=== PATIENT | female | born 1940 | race Caucasian/White ===

== ENCOUNTER 2020-02-24 18:31 | Inpatient (IN) | payer MEDICARE, MEDICAID ==
[2020-02-24] MEDS ORDERED: Sodium Chloride 0.9% 10 ML Syringe FLUSH PRN ×3 (18:45→20:26)
--- NOTE | 2020-02-24 18:45 | EDM.PDOC ---
ED HPI GENERAL MEDICAL PROBLEM - General Chief Complaint: General Stated Complaint: TACHYCARDIA/CP Time Seen by Provider: 02/24/20 18:45 Source of Information: Reports: Patient, EMS, Old Records ([facility] chart/EMR). Denies: EMS Notes Reviewed (Not available at time of dictation) History Limitations: Reports: No Limitations - History of Present Illness INITIAL COMMENTS - FREE TEXT/NARRATIVE: The patient was brought to the emergency room via ambulance with incident response manager accompaniment for evaluation of initial 11/21 retrosternal chest "ache" associated with some dizziness and tachycardia with PSVT noted by the paramedics at time of arrival with heart rate in the 170s at that time. Note spontaneous resolution of tachycardia without medications after saline lock was placed possibly secondary to vasovagal effect. The patient apparently does not have any previous history of coronary artery disease, chest pain or arrhythmia, although no previous cardiac work-up per our medical records. The patient denies any orthostasis, orthopnea, diaphoresis, paresthesias, recent decreased exercise tolerance, or any other anginal-type symptoms. No recent history of abdominal pain, heartburn, nausea, diarrhea, melena, gross hematochezia, or any food intolerance, including fatty foods, etc.. She denies any gross hematuria, colic, or other UTI symptoms. The patient also denies any recent fever, cough, wheezing, dyspnea, etc.. Her chest pain has completely resolved after spontaneous conversion of her tachycardia as above. The patient did have a minor fall at about 1400 hrs. this afternoon with history of recurrent falls and patient compliant with her walker and cane. Onset: Today, Sudden, Unknown/Unsure Onset Date: 02/24/20 Onset Time: 17:45 Duration: Resolved Prior to Arrival Location: Reports: Chest. Denies: Head, Face, Neck, Abdomen, Back, Upper Extremity, Left, Upper Extremity, Right, Radiates to Quality: Reports: Ache Severity: Moderate Improves with: Reports: Other (As above) Worsens with: Reports: None Context: Reports: Other (As above). Denies: Sick Contact, Trauma Associated Symptoms: Reports: Chest Pain. 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: EKG, IV/IO - Related Data Allergies Allergy/AdvReac Type Severity Reaction Status Date / Time Penicillins Allergy Hives Verified 02/24/20 18:41 tramadol Allergy Nausea Verified 02/24/20 18:41 yellow dye Allergy Itching Verified 02/24/20 18:41 Home Meds: Home Meds Aspirin [Ecotrin] 325 mg PO DAILY 04/24/14 [History] Cholecalciferol (Vitamin D3) [Vitamin D] 1,000 unit PO DAILY 04/24/14 [History] Fenofibrate,Micronized [Fenofibrate] 134 mg PO BEDTIME 04/24/14 [History] Ferrous Sulfate 325 mg PO DAILY 04/24/14 [History] Magnesium Oxide [Magnesium] 500 mg PO BID 04/24/14 [History] Moexipril HCl [Moexipril] 7.5 mg PO DAILY 04/24/14 [History] Pioglitazone HCl 45 mg PO DAILY 04/24/14 [History] metFORMIN [Glucophage] 1,000 mg PO BIDM 04/24/14 [History] Cyanocobalamin (Vitamin B-12) [Cyanocobalamin Injection] 1,000 mcg IM Q30D 09/07/19 [History] SitaGLIPtin [Januvia] 100 mg PO DAILY 09/07/19 [History] Acetaminophen [Tylenol Arthritis] 1 tab PO DAILY 10/18/19 [History] Cranberry 500 mg PO DAILY 02/24/20 [History] Sulfamethoxazole/Trimethoprim [Septra DS] 1 tab PO BID 02/24/20 [History] Past Medical History HEENT History: Reports: Impaired Vision, Other (See Below). Denies: Allergic Rhinitis, Cataract, Glaucoma, Hard of Hearing, Macular Degeneration, Otitis Media, Retinal Detachment Other HEENT History: The patient does wear glasses. Corpus palatinus. Cardiovascular History: Reports: High Cholesterol, Hypertension, Other (See Below). Denies: Afib, Aneurysm, Arrhythmia, Blood Clots/VTE/DVT, CAD, Heart Failure, Heart Murmur, MD, PVD, Syncope Other Cardiovascular History: Dyslipidemia. Respiratory History: Reports: Intubation, Previous. Denies: Asthma, Bronchitis, Recurrent, COPD, Intubation, Difficult, PE, Pneumothorax, Sleep Apnea, TB Gastrointestinal History: Reports: Cholelithiasis, Chronic Diarrhea, GERD. Denies: Celiac Disease, Colon Polyp, Diverticulosis, Fecal Incontinence, Gastritis, Inflammatory Bowel Disease, Irritable Bowel Syndrome, Jaundice, PUD Genitourinary History: Reports: UTI, Recurrent, Other (See Below). Denies: Acute Renal Failure, Chronic Renal Insuffiency, Renal Calculus, Retention, Urinary, STD, Urinary Incontinence Other Genitourinary History: Benign left renal cyst. PARARESCUE CRAFTSMAN History: Reports: Dysfunctional Uterine Bleeding, , Prolapsed Uterus. Denies: Ectopic , Endometriosis : 3 Para: 3 LMP (Approximate): Other (See Below) Other PARARESCUE CRAFTSMAN History: Surgical menopause secondary to dysfunctional uterine bleeding as above. Full term without complications during pregnancies or deliveries. Musculoskeletal History: Reports: Arthritis, Back Pain, Chronic, Fracture, Neck Pain, Chronic, Osteoarthritis, Osteoporosis, Other (See Below). Denies: Gout, RA, SLE Other Musculoskeletal History: Right wrist styloid fracture on 01/01/2016. Chronic low back pain with left-sided radiculopathy and previous epidural steroid injections and pain clinic management. Neurological History: Reports: Other (See Below). Denies: Cerebral Aneurysms, Concussion, CVA, Headaches, Chronic, Head Trauma, Migraines, MS, Neuropathy, Diabetic, Neuropathy, Peripheral, Parkinson's, Seizure, TIA Other Neuro History: Recurrent falls with the patient needing a walker and cane. Psychiatric History: Reports: None. Denies: Abuse, Victim of, ADD, ADHD, Addiction, Anxiety, Depression, Psych Hospitalization(s), PTSD, Suicide Attempt, Suicidal Ideation Endocrine/Metabolic History: Reports: Diabetes, Type II, Hypomagnesemia, Obesity/BMI 30+, Osteopenia, Osteoporosis, Vitamin D Deficiency. Denies: Diabetes, Gestational, Diabetes, Type I, Diabetes Mellitus, Type 3c, Hypothyroidism, IDDM Hematologic History: Reports: Anemia, B12 Deficiency, Iron Deficiency. Denies: Blood Transfusion(s) Immunologic History: Reports: None. Denies: AIDS, HIV, SLE Oncologic (Cancer) History: Reports: None. Denies: Basal Cell Carcinoma, Breast, Cervix, Colon, Hodgkin's Lymphoma, Leukemia, Lymphoma, Malignant Melanoma, Non-Hodgkin's Lymphoma, Ovarian, Squamous Cell Carcinoma, Uterine Dermatologic History: Reports: None. Denies: Eczema, Psoriasis - Infectious Disease History Infectious Disease History: Reports: Measles, MRSA (Right arm on 02/21/2020). Denies: C-Difficile, Chicken Pox, Meningitis, Mononucleosis, Mumps, Pertussis (Whooping Cough), Rheumatic Fever, Rubella, Scarlet Fever, Shingles, TB, VRE - Past Surgical History Head Surgeries/Procedures: Reports: None HEENT Surgical History: Reports: Adenoidectomy, Oral Surgery, Tonsillectomy, Other (See Below). Denies: Cataract Surgery, Eye Surgery, Laser Surgery, LASIK, Myringotomy w Tube(s), Naso-Sinus Surgery Other HEENT Surgeries/Procedures: Multiple teeth extractions. Tonsillectomy and adenoidectomy as a child. Cardiovascular Surgical History: Reports: None. Denies: Varicose Respiratory Surgical History: Reports: None. Denies: Thoracentesis Other Respiratory Surgeries/Procedures: Laparoscopic cholecystectomy on 10/15/2011. Colonoscopy on 09/09/2008. GI Surgical History: Reports: Cholecystectomy, Colonoscopy, Other (See Below). Denies: Appendectomy, EGD, Hernia, Abdominal, Hernia, Inguinal, Hernia Repair/Other, Polypectomy Female Surgical History: Reports: Hysterectomy, Salpingo-Oophorectomy, Other (See Below). Denies: Breast Biopsy, Section, D&C, Tubal Ligation Other Female Surgeries/Procedures: Complete hysterectomy with bilateral salpingo-oophorectomy at unknown age secondary to dysfunctional uterine bleeding. Endocrine Surgical History: Reports: None. Denies: Thyroid Biopsy Neurological Surgical History: Reports: Lumbar Spine, Other (See Below) Other Neurological Surgeries/Procedures: Patient with unknown type of back surgery possibly in the . Musculoskeletal Surgical History: Reports: None. Denies: Arthroscopic Procedure, Carpal Tunnel, Ganglion Cyst, Joint Replacement (No procedures shoulder surgery anything like that), ORIF, Shoulder Surgery Oncologic Surgical History: Reports: None Dermatological Surgical History: Reports: None - Past Imaging History Past Imaging History: Reports: Carotid US (06/15/2001), Mammogram (Last mammogram on 04/07/2009), MRI (MRI of the lumbar spine on 01/16/2019.), Ultrasound (Abdominal and pelvic ultrasound on 09/18/2011.) Social & Family History - Family History HEENT: Reports: None. Denies: Glaucoma, Macular Degeneration, Retinal Detachment Cardiac: Reports: CAD, MD. Denies: Afib, Aneurysm, Arrhythmia, Blood Clots/VTE/DVT, High Cholesterol, Hypertension Other Cardiac Family History: Father from MD in his 70s. Respiratory: Reports: None. Denies: Asthma, COPD, PE, Pneumothorax, Sleep Apnea GI: Reports: None. Denies: Celiac Disease, Cholelithiasis, Colon Polyps, GERD, GI bleed, Inflammatory Bowel Disease, Irritable Bowel Syndrome, PUD : Reports: None. Denies: Renal Calculus, Renal Disease/Insufficiency OBGYN: Reports: None. Denies: Endometriosis, Recurrent Spontaneous Musculoskeletal: Reports: Arthritis, Muscular Dystrophy, RA. Denies: Gout, SLE Other Musculoskeletal Family History: Son from muscular dystrophy. Mother with rheumatoid arthritis. Neurological: Reports: None. Denies: Alzheimers Disease, Cerebral Aneurysms, CVA, Dementia, Migraines, MS, Parkinson's, Seizure, TIA Psychiatric: Reports: None. Denies: Abuse, Victim of, ADD, ADHD, Anxiety, Depression, Psych Hospitalization(s), PTSD, Suicide Attempt Endocrine/Metabolic: Reports: Diabetes, type II, IDDM. Denies: Diabetes Mellitus, Type 3c, Hypothyroidism Other Endocrine/Metabolic Family History: Sister with IDDM. Father and son with AODM. Hematologic: Reports: None. Denies: Anemia, SLE Immunologic: Reports: SLE (Your mother your mother did pass away from her breast cancer though did your mother from her breast cancer she did). Denies: AIDS Dermatologic: Reports: None. Denies: Eczema, Psoriasis Oncologic: Reports: Breast, Other (See Below). Denies: Cervix, Colon, Hodgkin's Lymphoma, Leukemia, Lymphoma, Non-Hodgkin's Lymphoma, Ovarian, Skin, Uterine Other Oncologic Family History: Mother with fatal breast cancer in her 70s. - Tobacco Use Smoking Status *Q: Former Smoker Tobacco Use Within Last Twelve Months: No Years of Tobacco use: 7 Packs/Tins Daily: 0.1 Packs/Tins Daily Comment: 2 cigarettes/day between ages 20 and 27. Used Tobacco, but Quit: Yes Smoking Cessation Information Provided To Patient: No Second Hand Smoke Exposure: No Second Hand Smoke Education Provided: No - Caffeine Use Caffeine Use: Reports: Coffee (1 cup/day), Tea (1 glass/week). Denies: Energy Drinks, Soda - Alcohol Use Alcohol Use History: No Days Per Week of Alcohol Use: 0 Number of Drinks Per Day: 0 Number of Drinks Per Day Comment: No previous DWIs, problems with alcohol abuse, etc. 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 ED EXAM, GENERAL - Physical Exam Exam: See Below Exam Limited By: No Limitations General Appearance: Alert, WD/WN, No Apparent Distress Eye Exam: Bilateral Eye: EOMI, Normal Inspection (Patient is wearing glasses. No nystagmus), PERRL Ears: Normal External Exam, Normal Canal, Hearing Grossly Normal, Normal TMs Nose: Normal Inspection, Normal Mucosa, No Blood Throat/Mouth: Normal Inspection, Normal Lips, Normal Teeth (Multiple missing teeth with partial upper dentures and no acute caries.), Normal Gums, Normal Oropharynx, Normal Voice, No Airway Compromise, Other (2 cm torus palatinum). No: Dysphagia, Perioral Cyanosis Head: Atraumatic, Normocephalic. No: Facial Swelling, Facial Tenderness, Sinus Tenderness Neck: Supple, Non-Tender, Full Range of Motion, Carotid Bruit (Mild bilateral carotid bruits). No: Lymphadenopathy (L), Lymphadenopathy (R), Thyromegaly Respiratory/Chest: No Respiratory Distress, Lungs Clear, Normal Breath Sounds, No Accessory Muscle Use, Chest Non-Tender. No: Pleural Rub, Retractions Cardiovascular: Normal Peripheral Pulses, Regular Rate, Rhythm, No Edema, No Gallop, No JVD, No Murmur, No Rub. No: Gallop/S3, Gallop/S4, Friction Rub Peripheral Pulses: 2+: Femoral (L), Femoral (R), Dorsalis Pedis (L), Dorsalis Pedis (R) GI/Abdominal: Normal Bowel Sounds, Soft, Non-Tender, No Organomegaly, No Distention, No Abnormal Bruit, No Mass, Pelvis Stable, Other (Obese). No: Guarding (Female) Exam: Deferred Rectal (Female) Exam: Deferred Back Exam: Full Range of Motion, Other (Mild kyphosis). No: CVA Tenderness (L), CVA Tenderness (R), Muscle Spasm, Paraspinal Tenderness, Vertebral Tenderness Extremities: Normal Inspection, Normal Range of Motion, Non-Tender, No Pedal Edema, Normal Capillary Refill. No: Arthur's Sign Neurological: Alert, Oriented, CN II-XII Intact, Normal Cognition, Normal Gait, Normal Reflexes (Negative Babinski's), No Motor/Sensory Deficits Psychiatric: Normal Affect, Normal Mood Skin Exam: Wound/Incision (Mild skin tear over her proximal left lateral right forearm with history of MRSA under current therapy with dry dressing). No: Diaphoretic Lymphatic: No Adenopathy EKG INTERPRETATION EKG Date: 02/24/20 Time: 18:39 Rhythm: NSR Rate (Beats/Min): 96 [place]: Normal (Neutral cardiac axis) P-Wave: Present (Mild diffuse biphasic P waves) QRS: Normal (0.08 seconds) ST-T: Normal (T wave inversion in lead V1) QT: Normal WA/PQ Interval: 0.18 seconds Comparison: Change From Previous EKG (Resolution of PSVT and complete left bundle branch block versus aberrant conduction at time of EKG by incident response manager prior to arrival. No other previous EKGs for comparison.) EKG Interpretation Comments: 1. No acute ischemic changes 2. Left atrial enlargement Course - Vital Signs Last Recorded V/S: Last Vital Signs Temp 36.9 C 02/24/20 18:32 Pulse 93 02/24/20 19:15 Resp 18 02/24/20 19:15 BP 109/47 L 02/24/20 19:15 Pulse Ox 99 02/24/20 19:00 Vital Signs - 24 hr 02/24/20 02/24/20 02/24/20 18:32 19:00 19:15 Temperature [ 36.9 C Temporal] Pulse, 100 96 93 Peripheral [ Pulse Oximetry] Respiratory 18 20 18 Rate Blood Pressure 113/43 L 102/40 L 109/47 L [Right Upper Arm] O2 Sat by Pulse 100 99 Oximetry - Orders/Labs/Meds Orders: Active Orders 24 hr Category Date Time Status Cardiac Monitoring [RC] . DIRECTED Care 02/24/20 18:46 Active EKG Documentation Completion [RC] ASDIRECTED Care 02/24/20 18:46 Active Oxygen Therapy, ED [RC] PRN Care 02/24/20 18:46 Active Peripheral IV Care [RC] . DIRECTED Care 02/24/20 18:46 Active Peripheral IV Care [RC] . DIRECTED Care 02/24/20 19:15 Active Pulse Oximetry [RC] CONTINUOUS Care 02/24/20 18:46 Active Up With Assistance [RC] PFP Care 02/24/20 18:46 Active Vital Signs [RC] PFP Care 02/24/20 18:46 Active Nothing per Oral Now Diet [DIET] Diet 02/24/20 Breakfast Active Chest 1V Frontal [CR] Stat Exams 02/24/20 18:46 Ordered Sodium Chloride 0.9% [Saline Flush] Med 02/24/20 18:45 Active 10 ml FLUSH ASDIRECTED PRN Sodium Chloride 0.9% [Saline Flush] Med 02/24/20 19:15 Active 10 ml FLUSH ASDIRECTED PRN Obtain Past Medical Record [OM.PC] Urgent Oth 02/24/20 18:46 Active Peripheral IV Insertion Adult [OM.PC] Routine Oth 02/24/20 19:15 Ordered Peripheral IV Insertion Adult [OM.PC] Stat Oth 02/24/20 18:46 Ordered Resuscitation Status Stat Resus Stat 02/24/20 18:45 Ordered EKG 12 Lead [EK] Stat Ther 02/24/20 18:46 Ordered Medication Orders Sodium Chloride (Saline Flush) 10 ml FLUSH ASDIRECTED PRN PRN Reason: Keep Vein Open Sodium Chloride (Saline Flush) 10 ml FLUSH ASDIRECTED PRN PRN Reason: Keep Vein Open Labs: Laboratory Tests 02/24/20 02/24/20 02/24/20 Range/Units 19:30 19:30 19:30 WBC 7.4 (4.0-10.2) K/uL RBC 3.48 L (3.77-5.09) M/uL Hgb 10.1 L (11.7-15.5) g/dL Hct 32.0 L (34.0-46.0) % MCV 92.0 (84.0-98.0) fL MCH 29.0 (28.2-33.3) pg MCHC 31.6 L (31.7-36.0) g/dL RDW 15.7 H (11.2-14.1) % Plt Count 232 (150-350) K/uL Neut % (Auto) 80.0 (45.0-80.0) % Lymph % (Auto) 9.3 L (10.0-50.0) % Kane % (Auto) 9.4 (2.0-14.0) % Eos % (Auto) 0.9 (0.0-5.0) % Baso % (Auto) 0.4 (0.0-2.0) % Neut # (Auto) 5.94 (1.40-7.00) K/uL Lymph # (Auto) 0.69 (0.50-3.50) K/uL Kane # (Auto) 0.70 (0.00-1.00) K/uL Eos # (Auto) 0.07 (0.00-0.50) K/uL Baso # (Auto) 0.03 (0.00-0.20) K/uL PT 10.4 (9.5-12.0) SEC INR 1.0 APTT 25.9 (24.5-32.8) SEC D-Dimer, Quantitative 604 H (0-400) ng/mL Sodium (136-145) mmol/L Potassium (3.5-5.1) mmol/L Chloride (98-107) mmol/L Carbon Dioxide (21.0-32.0) mmol/L BUN (7-18) mg/dL Creatinine (0.51-1.17) mg/dL Est Cr Clr Drug Dosing Estimated GFR (MDRD) mL/min Glucose (74-106) mg/dL Lactic Acid (0.4-2.0) mmol/L Uric Acid (2.6-7.2) mg/dL Calcium (8.5-10.1) mg/dL Magnesium (1.8-2.4) mg/dL Total Bilirubin (0.2-1.0) mg/dL AST (15-37) U/L ALT (12-78) U/L Alkaline Phosphatase (46-116) IU/L Creatine Kinase (26-308) U/L Creatine Kinase Index (0.0-2.5) % CK-MB (CK-2) (0.00-3.60) ng/mL Troponin I (0.000-0.056) ng/mL NT-Pro-B Natriuret Pep (0-125) pg/mL Total Protein (6.4-8.2) g/dL Albumin (3.4-5.0) g/dL TSH, Ultra Sensitive (0.358-3.740) mIU/mL 02/24/20 02/24/20 Range/Units 19:30 19:30 WBC (4.0-10.2) K/uL RBC (3.77-5.09) M/uL Hgb (11.7-15.5) g/dL Hct (34.0-46.0) % MCV (84.0-98.0) fL MCH (28.2-33.3) pg MCHC (31.7-36.0) g/dL RDW (11.2-14.1) % Plt Count (150-350) K/uL Neut % (Auto) (45.0-80.0) % Lymph % (Auto) (10.0-50.0) % Kane % (Auto) (2.0-14.0) % Eos % (Auto) (0.0-5.0) % Baso % (Auto) (0.0-2.0) % Neut # (Auto) (1.40-7.00) K/uL Lymph # (Auto) (0.50-3.50) K/uL Kane # (Auto) (0.00-1.00) K/uL Eos # (Auto) (0.00-0.50) K/uL Baso # (Auto) (0.00-0.20) K/uL PT (9.5-12.0) SEC INR APTT (24.5-32.8) SEC D-Dimer, Quantitative (0-400) ng/mL Sodium 135 L (136-145) mmol/L Potassium 4.0 (3.5-5.1) mmol/L Chloride 100 (98-107) mmol/L Carbon Dioxide 23.4 (21.0-32.0) mmol/L BUN 26 H (7-18) mg/dL Creatinine 1.50 H (0.51-1.17) mg/dL Est Cr Clr Drug Dosing TNP Estimated GFR (MDRD) 34 mL/min Glucose 165 H (74-106) mg/dL Lactic Acid 1.4 (0.4-2.0) mmol/L Uric Acid 4.8 (2.6-7.2) mg/dL Calcium 9.1 (8.5-10.1) mg/dL Magnesium 1.9 (1.8-2.4) mg/dL Total Bilirubin 0.3 (0.2-1.0) mg/dL AST 27 (15-37) U/L ALT 21 (12-78) U/L Alkaline Phosphatase 66 (46-116) IU/L Creatine Kinase 80 (26-308) U/L Creatine Kinase Index 1.9 (0.0-2.5) % CK-MB (CK-2) 1.50 (0.00-3.60) ng/mL Troponin I 0.032 (0.000-0.056) ng/mL NT-Pro-B Natriuret Pep 1094 H (0-125) pg/mL Total Protein 7.0 (6.4-8.2) g/dL Albumin 3.4 (3.4-5.0) g/dL TSH, Ultra Sensitive 1.347 (0.358-3.740) mIU/mL Meds: Medications Generic Name Dose Route Start Last Admin Trade Name Freq PRN Reason Stop Dose Admin Sodium Chloride 10 ml 02/24/20 18:45 Saline Flush FLUSH ASDIRECTED PRN Keep Vein Open Sodium Chloride 10 ml 02/24/20 19:15 Saline Flush FLUSH ASDIRECTED PRN Keep Vein Open Discontinued Medications Generic Name Dose Route Start Last Admin Trade Name Freq PRN Reason Stop Dose Admin Aspirin 324 mg 02/24/20 18:45 02/24/20 19:02 Aspirin CHEW 02/24/20 18:46 324 mg ONETIME ONE Administration Famotidine 40 mg 02/24/20 18:45 02/24/20 19:06 Pepcid IVPUSH 02/24/20 18:46 40 mg ONETIME ONE Administration Ticagrelor 180 mg 02/24/20 18:45 02/24/20 19:03 Brilinta PO 02/24/20 18:46 180 mg ONETIME ONE Administration - Radiology Interpretation Free Text/Narrative:: 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 Chest x-ray, portable, shows mild cardiomegaly with possible borderline mild centralized CHF but no pulmonary infiltrates, pneumothorax, etc. Departure - Departure Time of Disposition: 20:15 Disposition: Admitted As Inpatient 68 Condition: Good Clinical Impression: PSVT (paroxysmal supraventricular tachycardia), Dyslipidemia, Hypertension, Osteoarthritis, Peptic reflux disease, Hypomagnesemia, Diabetes mellitus, Chest pain, Anemia, Renal insufficiency, CHF (congestive heart failure), D-dimer, elevated - Discharge Information *PRESCRIPTION DRUG MONITORING PROGRAM REVIEWED*: Not Applicable *COPY OF PRESCRIPTION DRUG MONITORING REPORT IN PATIENT MAURO: Not Applicable Referrals: Mona Sarmiento PA [Primary Care Provider] - Forms: ED Department Discharge Care Plan Goals: See plan Sepsis Event Note (ED) - Evaluation Sepsis Screening Result: No Definite Risk - Focused Exam Vital Signs: Vital Signs Temp Pulse Resp BP Pulse Ox 02/24/20 19:15 93 18 109/47 L 02/24/20 19:00 96 20 102/40 L 99 02/24/20 18:32 36.9 C 100 18 113/43 L 100 - Problem List & Annotations (1) Chest pain SNOMED Code(s): 38009185 Code(s): R07.9 - CHEST PAIN, UNSPECIFIED Status: Acute Priority: High Current Visit: Yes Onset Date: 02/24/20 Annotation/Comment:: Likely secondary to her PSVT as above with complete resolution of chest pain by time of arrival to our facility. Chest pain protocol was initiated, however. Initiate standard rule out MD orders. Secondary to multiple cardiac risk factors further cardiac work-up may be beneficial, including a dobutamine Cardiolite stress test. Cardiology consultation depending on her clinical course. Qualifiers: Chest pain type: precordial pain Qualified Code(s): R07.2 - Precordial pain (2) PSVT (paroxysmal supraventricular tachycardia) SNOMED Code(s): 33467479 Code(s): I47.1 - SUPRAVENTRICULAR TACHYCARDIA Status: Acute Priority: High Current Visit: Yes Onset Date: 02/24/20 Annotation/Comment:: Note somewhat low baseline blood pressure, however initiate low-dose Cardizem CD therapy with caution. Note no recent significant caffeine intake, OTC cold preparations, etc.. Spontaneous resolution of her tachycardia secondary to vasovagal reaction from IV placement as above. (3) CHF (congestive heart failure) SNOMED Code(s): 93497422 Code(s): I50.9 - HEART FAILURE, UNSPECIFIED Status: Acute Priority: High Current Visit: Yes Onset Date: 02/24/20 Annotation/Comment:: Moderate BNP elevation, however no clinical evidence of significant CHF by clinical exam or today's chest x-ray. Secondary to baseline low systolic blood pressure IV Lasix will not be initiated at this time. Possible mild CHF from her brief tachycardia as above with BNP also affected by her renal insufficiency. Consider echocardiogram on an outpatient basis in addition to cardiac work-up as above. Note mild secondary hyponatremia. Qualifiers: Heart failure type: unspecified Heart failure chronicity: acute Qualified Code(s): I50.9 - Heart failure, unspecified (4) D-dimer, elevated SNOMED Code(s): 301721901 Code(s): R79.89 - OTHER SPECIFIED ABNORMAL FINDINGS OF BLOOD CHEMISTRY Status: Acute Priority: High Current Visit: Yes Onset Date: 02/24/20 Annotation/Comment:: No clinical evidence of DVT or PE. Venous Doppler studies to be conducted on 02/25. Consider CTA of the chest depending on her clinical course. (5) Dyslipidemia SNOMED Code(s): 510462017 Code(s): E78.5 - HYPERLIPIDEMIA, UNSPECIFIED Status: Chronic Priority: Medium Current Visit: Yes Annotation/Comment:: Currently under therapy. Lipid panel in the a.m. (6) Hypertension SNOMED Code(s): 51545771 Code(s): I10 - ESSENTIAL (PRIMARY) HYPERTENSION Status: Chronic Priority: Medium Current Visit: Yes Annotation/Comment:: Under good control, however somewhat low blood pressures initially in the emergency room. Continue to observe closely secondary to her newly initiated Cardizem CD. Note history of recurrent falls. Qualifiers: Hypertension type: essential hypertension Qualified Code(s): I10 - Essential (primary) hypertension (7) Osteoarthritis SNOMED Code(s): 506452138 Code(s): M19.90 - UNSPECIFIED OSTEOARTHRITIS, UNSPECIFIED SITE Status: Chronic Priority: Medium Current Visit: Yes Annotation/Comment:: Otherwise stable by history with no recent injuries from her fall earlier today. Qualifiers: Osteoarthritis location: multiple joints Osteoarthritis type: primary Qualified Code(s): M89.49 - Other hypertrophic osteoarthropathy, multiple sites (8) Peptic reflux disease SNOMED Code(s): 873505302 Code(s): K21.9 - GASTRO-ESOPHAGEAL REFLUX DISEASE WITHOUT ESOPHAGITIS Status: Chronic Priority: Medium Current Visit: Yes Annotation/Comment:: No recent abdominal complaints. High-dose IV Pepcid given as GI prophylaxis in the emergency room. (9) Diabetes mellitus SNOMED Code(s): 82356494 Code(s): E11.9 - TYPE 2 DIABETES MELLITUS WITHOUT COMPLICATIONS Status: Chronic Priority: Medium Current Visit: Yes Annotation/Comment:: Currently under therapy. Glycosylated hemoglobin in the a.m. Qualifiers: Diabetes mellitus type: type 2 Diabetes mellitus assisted insulin use: without termite control technician use Diabetes mellitus complication status: with kidney complications Diabetes mellitus complication detail: with chronic kidney disease Chronic kidney disease stage: stage 2 (mild) Qualified Code(s): E11.22 - Type 2 diabetes mellitus with diabetic chronic kidney disease; N18.2 - Chronic kidney disease, stage 2 (mild) (10) Hypomagnesemia SNOMED Code(s): 421478344 Code(s): E83.42 - HYPOMAGNESEMIA Status: Chronic Priority: Medium Current Visit: Yes Annotation/Comment:: Currently under therapy with normal magnesium level on 02/23. (11) Anemia SNOMED Code(s): 918163789 Code(s): D64.9 - ANEMIA, UNSPECIFIED Status: Acute Current Visit: Yes Annotation/Comment:: History of iron deficiency and vitamin B12 deficiency. TIBC panel in a.m. 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 Observe for now. No NATE inhibitor's, etc. for now secondary to her baseline low systolic blood pressure. - Problem List Review Problem List Initiated/Reviewed/Updated: Yes - My Orders Last 24 Hours: My Active Orders 02/24/20 Breakfast Nothing per Oral Now Diet [DIET] 02/24/20 18:45 Sodium Chloride 0.9% [Saline Flush] 10 ml FLUSH ASDIRECTED PRN Resuscitation Status Stat 02/24/20 18:46 Cardiac Monitoring [RC] . DIRECTED EKG Documentation Completion [RC] ASDIRECTED Oxygen Therapy, ED [RC] PRN Peripheral IV Care [RC] . DIRECTED Pulse Oximetry [RC] CONTINUOUS Up With Assistance [RC] PFP Vital Signs [RC] PFP Chest 1V Frontal [CR] Stat Obtain Past Medical Record [OM.PC] Urgent Peripheral IV Insertion Adult [OM.PC] Stat EKG 12 Lead [EK] Stat 02/24/20 19:15 Peripheral IV Care [RC] . DIRECTED Sodium Chloride 0.9% [Saline Flush] 10 ml FLUSH ASDIRECTED PRN Peripheral IV Insertion Adult [OM.PC] Routine - Assessment/Plan Admission H&P: Please use this note as an admission H&P Last 24 Hours: My Active Orders 02/24/20 Breakfast Nothing per Oral Now Diet [DIET] 02/24/20 18:45 Sodium Chloride 0.9% [Saline Flush] 10 ml FLUSH ASDIRECTED PRN Resuscitation Status Stat 02/24/20 18:46 Cardiac Monitoring [RC] . DIRECTED EKG Documentation Completion [RC] ASDIRECTED Oxygen Therapy, ED [RC] PRN Peripheral IV Care [RC] . DIRECTED Pulse Oximetry [RC] CONTINUOUS Up With Assistance [RC] PFP Vital Signs [RC] PFP Chest 1V Frontal [CR] Stat Obtain Past Medical Record [OM.PC] Urgent Peripheral IV Insertion Adult [OM.PC] Stat EKG 12 Lead [EK] Stat 02/24/20 19:15 Peripheral IV Care [RC] . DIRECTED Sodium Chloride 0.9% [Saline Flush] 10 ml FLUSH ASDIRECTED PRN Peripheral IV Insertion Adult [OM.PC] Routine Assessment:: As above. Plan: As above. Extensive precautions were given to the patient, who is in agreement with the treatment plan. The patient's condition is stable enough for observation status and general supervision.
[2020-02-24] MEDS: Aspirin 81 MG Tab.Chew CHEW ONE (19:02)
[2020-02-24] MEDS: Ticagrelor 90 MG Tab PO ONE (19:03)
[2020-02-24] MEDS: Famotidine 20 MG/2 ML SDV IVPUSH ONE (19:06)
[2020-02-24 20:01] LABS: CHLORIDE,CL 100 mmol/L (98-107); PTT,PARTIAL THROMBOPLSTIN TIME 25.9 SEC (24.5-32.8); SODIUM,NA 135 mmol/L (136-145)
[2020-02-24] MEDS ORDERED: Acetaminophen 325 MG Tab PO PRN (20:26)
[2020-02-24] MEDS ORDERED: Temazepam 15 MG Cap PO PRN (20:26)
[2020-02-24] MEDS: Diltiazem 120 MG Cap.CD PO SCH (21:20)
[2020-02-24] MEDS: Enoxaparin 40 MG/0.4 ML Syringe SUBCUT SCH (21:24)
[2020-02-24] MEDS: Sulfamethoxazole/Trimethoprim 800-160 MG Tab PO ONE (23:10)
[2020-02-24] MEDS: Fenofibrate,Micronized 134 MG Cap PO ONE (23:10)
[2020-02-25] MEDS: Lactated Ringers 250 ML IV SCH (03:28)
[2020-02-25 07:46] LABS: HEMOGLOBIN A1C 6.2 % (4.3-5.7)
[2020-02-25] MEDS ORDERED: Lisinopril 10 MG Tab PO SCH (08:00)
[2020-02-25] MEDS: metFORMIN 500 MG Tab PO SCH (08:08)
[2020-02-25] MEDS: Acetaminophen 650 MG Tab.ER PO SCH (08:08)
[2020-02-25] MEDS: Cholecalciferol (Vitamin D3) 25 MCG Tab PO SCH (08:08)
[2020-02-25] MEDS: Ferrous Sulfate 325 MG Tab PO SCH (08:08)
[2020-02-25] MEDS: Magnesium Oxide 400 MG Tab PO SCH (08:08)
[2020-02-25] MEDS: Cranberry 500 MG Cap PO SCH (08:08)
[2020-02-25] MEDS: Sulfamethoxazole/Trimethoprim 800-160 MG Tab PO SCH (08:10)
[2020-02-25] MEDS: Aspirin 325 MG Tab.EC PO SCH (08:13)
--- NOTE | 2020-02-25 10:18 | PCM.DCSUM1 ---
Discharge Summary - Hospital Course HPI Initial Comments: See emergency room note/admission H&P Brief History: See emergency room note/admission H&P Diagnosis: Stroke: No Modified Dante Scale: No Symptoms at All Modified Dante Scale Score: 0 - Discharge Data Discharge Date: 02/25/20 Discharge Disposition: DC/Tfer to Acute Hospital 02 Condition: Fair - Referral to Home Health Primary Care Physician: DANIELE Rosas - Discharge Diagnosis/Problem(s) (1) Coronary artery disease SNOMED Code(s): 63779018 ICD Code: I25.10 - ATHSCL HEART DISEASE OF [place] CORONARY ARTERY W/O ANG PCTRS Status: Acute Priority: High Current Visit: Yes Onset Date: 02/25/20 Problem Details: New EKG changes this morning, including evidence of probable anterior wall cardiac ischemia as below. In addition, new troponin elevation of 0.083 this morning with her current CHF being a contributing factor. Otherwise no chest pain or anginal type symptoms since admission despite second episode of PSVT as below. Telephone consultation at 10:05 AM this morning with Dr. De Paz, hospitalist at [facility], who does accept the patient for further treatment, evaluation, and cardiology consultation. He is aware of the patient's CHF and d-dimer elevation and is also comfortable not giving an IV bolus of sodium heparin prior to patient transfer. Permission was obtained for initiating patient's diet prior to transfer. Otherwise patient's clinical exam and vital signs were stable at time of transfer with ambulance transfer with demo coordinator accompaniment. Qualifiers: Coronary Disease-Associated Artery/Lesion type: [place] artery [place] vs. transplanted heart: [place] heart Associated angina: without angina Qualified Code(s): I25.10 - Atherosclerotic heart disease of [place] coronary artery without angina pectoris (2) Chest pain SNOMED Code(s): 49971839 ICD Code: R07.9 - CHEST PAIN, UNSPECIFIED Status: Acute Priority: High Current Visit: Yes Onset Date: 02/24/20 Problem Details: Likely secondary to her PSVT as below with complete resolution of chest pain by time of arrival to our facility. Chest pain protocol was initiated, however, with no evidence of anterior wall cardiac ischemia as above. Note no recurrence of her chest pain or other anginal type symptoms at time of recurrence of her PSVT at 2:17 AM this morning as below. Qualifiers: Chest pain type: precordial pain Qualified Code(s): R07.2 - Precordial pain (3) PSVT (paroxysmal supraventricular tachycardia) SNOMED Code(s): 15558183 ICD Code: I47.1 - SUPRAVENTRICULAR TACHYCARDIA Status: Acute Priority: High Current Visit: Yes Onset Date: 02/24/20 Problem Details: Initial PSVT with aberrant conduction with heart rate in the 170s noted by paramedics as per emergency room note. Secondary to somewhat low baseline blood pressure on admission, however initiated only low-dose Cardizem CD therapy with caution at that time. Recurrence of PSVT with heart rates in the 140s at 2:17 AM with spontaneous resolution after vasovagal maneuvers were performed, however note significant secondary bradycardia with initial heart rate of 27 with subsequent improvement to the 40s, however some hypotension with blood pressure of 80/26 at that time. Blood pressures did improve with a 250 mL IV bolus of lactated Ringer's with no chest pain or anginal type symptoms during the second episode of PSVT. Secondary to history of recurrent falls, including in the early afternoon prior to admission, suspicion of possible developing sick sinus syndrome with further cardiac work-up and/or pacemaker depending on her clinical course. Note no recent significant caffeine intake, OTC cold preparations, etc.. Spontaneous resolution of her tachycardia secondary to vasovagal reaction from IV placement by the paramedics during initial episode as per emergency room note. (4) CHF (congestive heart failure) SNOMED Code(s): 08378014 ICD Code: I50.9 - HEART FAILURE, UNSPECIFIED Status: Acute Priority: High Current Visit: Yes Onset Date: 02/24/20 Problem Details: Moderate BNP elevation, however no clinical evidence of significant CHF by clinical exam or chest x-ray on 02/24/2020. Secondary to baseline low systolic blood pressure IV Lasix was not be initiated at that time. Possible mild CHF from her brief tachycardia as above with BNP also affected by her renal insufficiency. Consider echocardiogram by accepting providers in addition to cardiac work-up as above. Note mild secondary hyponatremia on admission has resolved on 02/24. Qualifiers: Heart failure type: unspecified Heart failure chronicity: acute Qualified Code(s): I50.9 - Heart failure, unspecified (5) D-dimer, elevated SNOMED Code(s): 382572717 ICD Code: R79.89 - OTHER SPECIFIED ABNORMAL FINDINGS OF BLOOD CHEMISTRY Status: Acute Priority: High Current Visit: Yes Onset Date: 02/24/20 Problem Details: No clinical evidence of DVT or PE. Venous Doppler studies should be conducted by accepting providers and was initially planned to be conducted in this facility on 02/25 secondary to lack of availability of ultrasound during the weekend. Consider CTA of the chest depending on her clinical course. Subcu Lovenox was administered on admission, however not at the VTE dose. (6) Dyslipidemia SNOMED Code(s): 460989751 ICD Code: E78.5 - HYPERLIPIDEMIA, UNSPECIFIED Status: Chronic Priority: Medium Current Visit: Yes Problem Details: Currently under therapy. Lipid panel in the a.m. of 02/25/2020 did indicate an HDL of 27. (7) Hypertension SNOMED Code(s): 42249743 ICD Code: I10 - ESSENTIAL (PRIMARY) HYPERTENSION Status: Chronic Priority: Medium Current Visit: Yes Problem Details: Under good control, however somewhat low blood pressures initially in the emergency room with hypotensive episode with second recurrence of PSVT during this hospitalization as above. Continue to observe closely secondary to her newly initiated Cardizem CD. Note history of recurrent falls. Qualifiers: Hypertension type: essential hypertension Qualified Code(s): I10 - Essential (primary) hypertension (8) Osteoarthritis SNOMED Code(s): 915798995 ICD Code: M19.90 - UNSPECIFIED OSTEOARTHRITIS, UNSPECIFIED SITE Status: Chronic Priority: Medium Current Visit: Yes Problem Details: Otherwise stable by history with no recent injuries from her fall earlier prior to admission. Qualifiers: Osteoarthritis location: multiple joints Osteoarthritis type: primary Qualified Code(s): M89.49 - Other hypertrophic osteoarthropathy, multiple sites (9) Peptic reflux disease SNOMED Code(s): 681650757 ICD Code: K21.9 - GASTRO-ESOPHAGEAL REFLUX DISEASE WITHOUT ESOPHAGITIS Status: Chronic Priority: Medium Current Visit: Yes Problem Details: No recent abdominal complaints. High-dose IV Pepcid given as GI prophylaxis in the emergency room. (10) Diabetes mellitus SNOMED Code(s): 37943611 ICD Code: E11.9 - TYPE 2 DIABETES MELLITUS WITHOUT COMPLICATIONS Status: Chronic Priority: Medium Current Visit: Yes Problem Details: Currently under therapy. Glycosylated hemoglobin of 6.2% in the a.m. of 02/24 showing overall good control. Qualifiers: Diabetes mellitus type: type 2 Diabetes mellitus superintendent terminal insulin use: without superintendent terminal use Diabetes mellitus complication status: with kidney complications Diabetes mellitus complication detail: with chronic kidney disease Chronic kidney disease stage: stage 2 (mild) Qualified Code(s): E11.22 - Type 2 diabetes mellitus with diabetic chronic kidney disease; N18.2 - Chronic kidney disease, stage 2 (mild) (11) Hypomagnesemia SNOMED Code(s): 244974504 ICD Code: E83.42 - HYPOMAGNESEMIA Status: Chronic Priority: Medium Current Visit: Yes Problem Details: Currently under therapy with normal magnesium level on 02/23. (12) Anemia SNOMED Code(s): 247150619 ICD Code: D64.9 - ANEMIA, UNSPECIFIED Status: Acute Current Visit: Yes Problem Details: History of iron deficiency and vitamin B12 deficiency. TIBC panel in a.m. of 02/24 did show persistent iron deficiency with somewhat increased anemia and hemoglobin of 9.2 prior to transfer. No evidence of acute GI bleed, etc. despite low-dose subcu Lovenox therapy as above. Continue to observe closely by accepting providers with GI work-up depending on her clinical course. Patient has refused colonoscopy in the recent past, however. Qualifiers: Anemia type: iron deficiency Iron deficiency anemia type: unspecified iron deficiency Qualified Code(s): D50.9 - Iron deficiency anemia, unspecified (13) Renal insufficiency SNOMED Code(s): 193649486, 918813928 ICD Code: N28.9 - DISORDER OF KIDNEY AND URETER, UNSPECIFIED Status: Acute Priority: High Current Visit: Yes Onset Date: 02/24/20 Problem Details: Newly diagnosed probable diabetic nephropathy with stable creatinine at time of transfer. Consider urine for microalbumin, etc. depending on her clinical course.. Observe for now. Note that previous NATE inhibitor, moexipril was held in the a.m. of 02/23 secondary to her baseline low systolic blood pressure on admission, new Cardizem CD therapy, and hypotensive episode as above. (14) Hypoalbuminemia SNOMED Code(s): 525096662 ICD Code: E88.09 - OTH DISORDERS OF PLASMA-PROTEIN METABOLISM, NEC Status: Acute Priority: Medium Current Visit: Yes Onset Date: 02/25/20 Problem Details: Normal albumin level on admission. Observe for now. Consider high- protein Glucerna supplements as snacks depending on her clinical course. (15) MRSA cellulitis SNOMED Code(s): 654280364 ICD Code: L03.90 - CELLULITIS, UNSPECIFIED; B95.62 - METHICILLIN RESIS STAPH INFCT CAUSING DISEASES CLASSD ELSWHR Status: Acute Priority: Medium Current Visit: Yes Onset Date: 02/21/20 Problem Details: Recently diagnosed right forearm MRSA cellulitis from skin tear with Bactrim DS therapy initiated prior to admission. (16) UTI (urinary tract infection) SNOMED Code(s): 73815487 ICD Code: N39.0 - URINARY TRACT INFECTION, SITE NOT SPECIFIED Status: Acute Priority: Medium Current Visit: Yes Onset Date: 02/25/20 Problem Details: Foul-smelling urine with some dysuria on 02/24 with Bactrim DS therapy already initiated prior to admission on 02/20 as above. No further medications at this time awaiting culture and sensitivity results, which were set up today. Qualifiers: Urinary tract infection type: acute cystitis - Patient Summary/Data Operative Procedure(s) Performed: None Complications: None Consults: Hospitalist as above Labs Pending at D/C: 1. Final chest x-ray report from 02/24/2020 2. Urine culture and sensitivity results from 02/25/2020 Recommended Follow-up Testing/Procedures: As above Planned Operative Procedure(s) after DC: As above Hospital Course: Patient was admitted to inpatient/acute care on telemetry with initiation of standard rule out IN orders as above. Note evidence of new anterior wall cardiac ischemia with mild troponin I elevation but no chest pain or anginal type symptoms throughout this hospitalization. Recurrent episodes of PSVT with additional secondary severe bradycardia after vasovagal maneuver with history of recent recurrent falls and suspicions of possible sick sinus syndrome as above. Otherwise no complications during this hospitalization despite hypotensive episode, etc. as above - Patient Instructions Diet: Fluid Restriction Diet, Other: Heart healthy, 1800-calorie ADA, diverticulosis Fluid Restriction: 2000 mL Activity: No Strenuous Activities Driving: May Drive Today Showering/Bathing: No Showering Wound/Incision Care: Keep Operative Site/Wound Site Clean and Dry, Change Dressing Daily Notify Provider of: Fever, Increased Pain, Swelling and Redness, Drainage, Nausea and/or Vomiting - Discharge Plan *PRESCRIPTION DRUG MONITORING PROGRAM REVIEWED*: Not Applicable *COPY OF PRESCRIPTION DRUG MONITORING REPORT IN PATIENT MAURO: Not Applicable Home Medications: Home Meds Aspirin [Ecotrin] 325 mg PO DAILY 04/24/14 [History] Cholecalciferol (Vitamin D3) [Vitamin D] 1,000 unit PO DAILY 04/24/14 [History] Fenofibrate,Micronized [Fenofibrate] 134 mg PO BEDTIME 04/24/14 [History] Ferrous Sulfate 325 mg PO DAILY 04/24/14 [History] Magnesium Oxide [Magnesium] 500 mg PO BID 04/24/14 [History] Moexipril HCl [Moexipril] 7.5 mg PO DAILY 04/24/14 [History] Pioglitazone HCl 45 mg PO DAILY 04/24/14 [History] metFORMIN [Glucophage] 1,000 mg PO BIDM 04/24/14 [History] Cyanocobalamin (Vitamin B-12) [Cyanocobalamin Injection] 1,000 mcg IM Q30D 09/07/19 [History] SitaGLIPtin [Januvia] 100 mg PO DAILY 09/07/19 [History] Acetaminophen [Tylenol Arthritis] 1 tab PO DAILY 10/18/19 [History] Cranberry 500 mg PO DAILY 02/24/20 [History] Sulfamethoxazole/Trimethoprim [Septra DS] 1 tab PO BID 02/24/20 [History] Oxygen Therapy Mode: Room Air Forms: ED Department Discharge, Interfacility Transfer EMTALA Referrals: Mona Sarmiento PA [Primary Care Provider] - - Discharge Summary/Plan Comment DC Time >30 min.: Yes (Coordination of care ) Discharge Summary/Plan Comment: As above. Extensive precautions were given to the patient, who is in agreement with the treatment plan. Hospital transfer via ambulance with demo coordinator accompaniment as above. - General Info Date of Service: 02/25/20 Admission Dx/Problem (Free Text: 1. Chest pain 2. PSVT with aberrant conduction 3. CHF 4. D-dimer elevation Functional Status: Reports: Pain Controlled, Tolerating Diet (Starting this morning), Ambulating, Urinating. Denies: New Symptoms, Incentive Spirometry Numeric/FACES Score: 0 - Review of Systems General: Reports: No Symptoms. Denies: Fever, Weakness, Fatigue, Malaise, Chills, Night Sweats, Appetite (Good) HEENT: Reports: Glasses. Denies: Dysphasia, Ear Pain, Eye Pain, Headaches, Post Nasal Drip, Sinus Congestion, Sore Throat, Rhinitis, Visual Changes Pulmonary: Reports: No Symptoms. Denies: Shortness of Breath, Pleuritic Chest Pain, Cough, Sputum, Wheezing Cardiovascular: Reports: Palpitations (Recurrent brief episode of PSVT as above). Denies: Chest Pain, Dyspnea on Exertion, Orthopnea, PND, Edema, Lightheadedness Gastrointestinal: Reports: No Symptoms. Denies: Abdominal Pain, Constipation, Decreased Appetite, Diarrhea, Flatus, Hematochezia, Melena, Nausea, Vomiting Genitourinary: Reports: Dysuria, Frequency, Burning, Urgency. Denies: Incontinence, Hematuria, Retention, Flank Pain Musculoskeletal: Reports: No Symptoms. Denies: Neck Pain, Shoulder Pain, Arm Pain, Back Pain Skin: Reports: Other (Healing skin tear and cellulitis in the right forearm). Denies: Diaphoresis Neurological: Reports: Difficulty Walking (Stable with current walker and cane use requirement). Denies: Confusion, Dizziness, Numbness, Paresthesia, Syncope, Tingling, Weakness Psychiatric: Reports: No Symptoms. Denies: Confusion, Depression, Anxiety, Agitation, Cravings, Hallucinations - Patient Data Vitals - Most Recent: Last Vital Signs Temp 36.9 C 02/25/20 07:47 Pulse 63 02/25/20 07:47 Resp 18 02/25/20 07:47 BP 123/33 L 02/25/20 07:47 Pulse Ox 100 02/25/20 07:47 Orthostatic Blood Pressure [ 101/37 Standing] Orthostatic Blood Pressure [ 122/39 Sitting] Vital Signs - 24 hr 02/24/20 02/24/20 02/24/20 18:32 19:00 19:15 Temperature [ 36.9 C Temporal] Pulse, Peripheral Pulse, 100 96 93 Peripheral [ Pulse Oximetry] Respiratory 18 20 18 Rate Blood Pressure Blood Pressure [Left Upper Arm ] Blood Pressure 113/43 L 102/40 L 109/47 L [Right Upper Arm] O2 Sat by Pulse 100 99 Oximetry 02/24/20 02/24/20 02/24/20 20:26 21:20 22:00 Temperature [ 36.9 C 36.8 C Temporal] Pulse, 76 Peripheral Pulse, 85 74 Peripheral [ Pulse Oximetry] Respiratory 20 14 Rate Blood Pressure 118/36 L Blood Pressure 121/50 L 122/35 L [Left Upper Arm ] Blood Pressure [Right Upper Arm] O2 Sat by Pulse 98 100 Oximetry 02/25/20 02/25/20 02/25/20 00:00 01:59 02:20 Temperature [ Temporal] Pulse, Peripheral Pulse, 73 70 142 H Peripheral [ Pulse Oximetry] Respiratory Rate Blood Pressure Blood Pressure 145/104 H 80/26 L [Left Upper Arm ] Blood Pressure 102/28 L [Right Upper Arm] O2 Sat by Pulse Oximetry 02/25/20 02/25/20 02/25/20 04:00 06:00 07:47 Temperature [ 36.9 C 37.0 C 36.9 C Temporal] Pulse, Peripheral Pulse, 63 61 63 Peripheral [ Pulse Oximetry] Respiratory 12 18 Rate Blood Pressure Blood Pressure [Left Upper Arm ] Blood Pressure 108/36 L 117/43 L 123/33 L [Right Upper Arm] O2 Sat by Pulse 100 100 Oximetry 02/25/20 10:00 Temperature [ 36.8 C Temporal] Pulse, Peripheral Pulse, 62 Peripheral [ Pulse Oximetry] Respiratory 18 Rate Blood Pressure Blood Pressure [Left Upper Arm ] Blood Pressure 126/43 L [Right Upper Arm] O2 Sat by Pulse 100 Oximetry Orthostatic Blood Pressure [ 101/37 Standing] Orthostatic Blood Pressure [ 122/39 Sitting] Weight - Most Recent: 77.383 kg I&O - Last 24 hours: Intake & Output 02/24/20 02/25/20 02/25/20 22:59 06:59 14:59 Intake Total 100 Output Total 800 100 Balance -700 -100 Imaging Impressions - 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 Otherwise subsequent normal sinus rhythm with average heart rate in the high 50s to low 60s with no other cardiac arrhythmia. Chest x-ray, portable, on 02/24/2020 shows mild cardiomegaly with possible borderline mild centralized CHF but no pulmonary infiltrates, pneumothorax, etc. Lab Results - Last 24 hrs: Laboratory Results - last 24 hr 02/24/20 02/24/20 02/24/20 Range/Units 19:30 19:30 19:30 WBC 7.4 (4.0-10.2) K/uL RBC 3.48 L (3.77-5.09) M/uL Hgb 10.1 L (11.7-15.5) g/dL Hct 32.0 L (34.0-46.0) % MCV 92.0 (84.0-98.0) fL MCH 29.0 (28.2-33.3) pg MCHC 31.6 L (31.7-36.0) g/dL RDW 15.7 H (11.2-14.1) % Plt Count 232 (150-350) K/uL Neut % (Auto) 80.0 (45.0-80.0) % Lymph % (Auto) 9.3 L (10.0-50.0) % [place] % (Auto) 9.4 (2.0-14.0) % Eos % (Auto) 0.9 (0.0-5.0) % Baso % (Auto) 0.4 (0.0-2.0) % Neut # (Auto) 5.94 (1.40-7.00) K/uL Lymph # (Auto) 0.69 (0.50-3.50) K/uL [place] # (Auto) 0.70 (0.00-1.00) K/uL Eos # (Auto) 0.07 (0.00-0.50) K/uL Baso # (Auto) 0.03 (0.00-0.20) K/uL PT 10.4 (9.5-12.0) SEC INR 1.0 APTT 25.9 (24.5-32.8) SEC D-Dimer, Quantitative 604 H (0-400) ng/mL Sodium (136-145) mmol/L Potassium (3.5-5.1) mmol/L Chloride (98-107) mmol/L Carbon Dioxide (21.0-32.0) mmol/L BUN (7-18) mg/dL Creatinine (0.51-1.17) mg/dL Est Cr Clr Drug Dosing Estimated GFR (MDRD) mL/min Glucose (74-106) mg/dL POC Glucose (65-110) mg/dl Hemoglobin A1c (4.3-5.7) % Lactic Acid (0.4-2.0) mmol/L Uric Acid (2.6-7.2) mg/dL Calcium (8.5-10.1) mg/dL Magnesium (1.8-2.4) mg/dL Iron (50-175) ug/dL TIBC (250-450) ug/dL % Saturation Total Bilirubin (0.2-1.0) mg/dL AST (15-37) U/L ALT (12-78) U/L Alkaline Phosphatase (46-116) IU/L Creatine Kinase (26-308) U/L Creatine Kinase Index (0.0-2.5) % CK-MB (CK-2) (0.00-3.60) ng/mL Troponin I (0.000-0.056) ng/mL NT-Pro-B Natriuret Pep (0-125) pg/mL Total Protein (6.4-8.2) g/dL Albumin (3.4-5.0) g/dL Triglycerides (30-150) mg/dL Cholesterol (100-200) mg/dL LDL Cholesterol, Calc (0-100) mg/dL HDL Cholesterol (40-60) mg/dL TSH, Ultra Sensitive (0.358-3.740) mIU/mL Specimen Type Urine Color Urine Appearance Urine pH (5.0-9.0) Ur Specific [place] (1.005-1.030) Urine Protein (NEGATIVE) mg/dL Urine Glucose (UA) (NEGATIVE) mg/dL Urine Ketones (NEGATIVE) mg/dL Urine Occult Blood (NEGATIVE) Urine Nitrite (NEGATIVE) Urine Bilirubin (NEGATIVE) Urine Urobilinogen (0.2-1.0) E.U./dL Ur Leukocyte Esterase (NEGATIVE) Urine RBC /HPF Urine WBC /HPF Ur Epithelial Cells /LPF Urine Bacteria (NONE TO FEW) /HPF 02/24/20 02/24/20 02/25/20 Range/Units 19:30 19:30 02:44 WBC (4.0-10.2) K/uL RBC (3.77-5.09) M/uL Hgb (11.7-15.5) g/dL Hct (34.0-46.0) % MCV (84.0-98.0) fL MCH (28.2-33.3) pg MCHC (31.7-36.0) g/dL RDW (11.2-14.1) % Plt Count (150-350) K/uL Neut % (Auto) (45.0-80.0) % Lymph % (Auto) (10.0-50.0) % [place] % (Auto) (2.0-14.0) % Eos % (Auto) (0.0-5.0) % Baso % (Auto) (0.0-2.0) % Neut # (Auto) (1.40-7.00) K/uL Lymph # (Auto) (0.50-3.50) K/uL [place] # (Auto) (0.00-1.00) K/uL Eos # (Auto) (0.00-0.50) K/uL Baso # (Auto) (0.00-0.20) K/uL PT (9.5-12.0) SEC INR APTT (24.5-32.8) SEC D-Dimer, Quantitative (0-400) ng/mL Sodium 135 L (136-145) mmol/L Potassium 4.0 (3.5-5.1) mmol/L Chloride 100 (98-107) mmol/L Carbon Dioxide 23.4 (21.0-32.0) mmol/L BUN 26 H (7-18) mg/dL Creatinine 1.50 H (0.51-1.17) mg/dL Est Cr Clr Drug Dosing TNP Estimated GFR (MDRD) 34 mL/min Glucose 165 H (74-106) mg/dL POC Glucose 104 (65-110) mg/dl Hemoglobin A1c (4.3-5.7) % Lactic Acid 1.4 (0.4-2.0) mmol/L Uric Acid 4.8 (2.6-7.2) mg/dL Calcium 9.1 (8.5-10.1) mg/dL Magnesium 1.9 (1.8-2.4) mg/dL Iron (50-175) ug/dL TIBC (250-450) ug/dL % Saturation Total Bilirubin 0.3 (0.2-1.0) mg/dL AST 27 (15-37) U/L ALT 21 (12-78) U/L Alkaline Phosphatase 66 (46-116) IU/L Creatine Kinase 80 (26-308) U/L Creatine Kinase Index 1.9 (0.0-2.5) % CK-MB (CK-2) 1.50 (0.00-3.60) ng/mL Troponin I 0.032 (0.000-0.056) ng/mL NT-Pro-B Natriuret Pep 1094 H (0-125) pg/mL Total Protein 7.0 (6.4-8.2) g/dL Albumin 3.4 (3.4-5.0) g/dL Triglycerides (30-150) mg/dL Cholesterol (100-200) mg/dL LDL Cholesterol, Calc (0-100) mg/dL HDL Cholesterol (40-60) mg/dL TSH, Ultra Sensitive 1.347 (0.358-3.740) mIU/mL Specimen Type Urine Color Urine Appearance Urine pH (5.0-9.0) Ur Specific [place] (1.005-1.030) Urine Protein (NEGATIVE) mg/dL Urine Glucose (UA) (NEGATIVE) mg/dL Urine Ketones (NEGATIVE) mg/dL Urine Occult Blood (NEGATIVE) Urine Nitrite (NEGATIVE) Urine Bilirubin (NEGATIVE) Urine Urobilinogen (0.2-1.0) E.U./dL Ur Leukocyte Esterase (NEGATIVE) Urine RBC /HPF Urine WBC /HPF Ur Epithelial Cells /LPF Urine Bacteria (NONE TO FEW) /HPF 02/25/20 02/25/20 02/25/20 Range/Units 07:12 07:12 07:12 WBC 4.9 (4.0-10.2) K/uL RBC 3.18 L (3.77-5.09) M/uL Hgb 9.2 L (11.7-15.5) g/dL Hct 29.3 L (34.0-46.0) % MCV 92.1 (84.0-98.0) fL MCH 28.9 (28.2-33.3) pg MCHC 31.4 L (31.7-36.0) g/dL RDW 15.7 H (11.2-14.1) % Plt Count 194 (150-350) K/uL Neut % (Auto) 73.6 (45.0-80.0) % Lymph % (Auto) 12.1 (10.0-50.0) % [place] % (Auto) 11.5 (2.0-14.0) % Eos % (Auto) 2.0 (0.0-5.0) % Baso % (Auto) 0.8 (0.0-2.0) % Neut # (Auto) 3.59 (1.40-7.00) K/uL Lymph # (Auto) 0.59 (0.50-3.50) K/uL [place] # (Auto) 0.56 (0.00-1.00) K/uL Eos # (Auto) 0.10 (0.00-0.50) K/uL Baso # (Auto) 0.04 (0.00-0.20) K/uL PT (9.5-12.0) SEC INR APTT (24.5-32.8) SEC D-Dimer, Quantitative (0-400) ng/mL Sodium 137 (136-145) mmol/L Potassium 3.9 (3.5-5.1) mmol/L Chloride 103 (98-107) mmol/L Carbon Dioxide 23.2 (21.0-32.0) mmol/L BUN 25 H (7-18) mg/dL Creatinine 1.48 H (0.51-1.17) mg/dL Est Cr Clr Drug Dosing 25.18 Estimated GFR (MDRD) 34 mL/min Glucose 103 (74-106) mg/dL POC Glucose (65-110) mg/dl Hemoglobin A1c (4.3-5.7) % Lactic Acid (0.4-2.0) mmol/L Uric Acid (2.6-7.2) mg/dL Calcium 9.0 (8.5-10.1) mg/dL Magnesium (1.8-2.4) mg/dL Iron 25 L (50-175) ug/dL TIBC 327 (250-450) ug/dL % Saturation 7.71715 Total Bilirubin 0.4 (0.2-1.0) mg/dL AST 26 (15-37) U/L ALT 19 (12-78) U/L Alkaline Phosphatase 47 (46-116) IU/L Creatine Kinase 78 (26-308) U/L Creatine Kinase Index 1.5 (0.0-2.5) % CK-MB (CK-2) 1.20 (0.00-3.60) ng/mL Troponin I 0.083 H* (0.000-0.056) ng/mL NT-Pro-B Natriuret Pep (0-125) pg/mL Total Protein 6.3 L (6.4-8.2) g/dL Albumin 3.1 L (3.4-5.0) g/dL Triglycerides 140 (30-150) mg/dL Cholesterol 126 (100-200) mg/dL LDL Cholesterol, Calc 71 (0-100) mg/dL HDL Cholesterol 27 L (40-60) mg/dL TSH, Ultra Sensitive (0.358-3.740) mIU/mL Specimen Type Urine Color Urine Appearance Urine pH (5.0-9.0) Ur Specific [place] (1.005-1.030) Urine Protein (NEGATIVE) mg/dL Urine Glucose (UA) (NEGATIVE) mg/dL Urine Ketones (NEGATIVE) mg/dL Urine Occult Blood (NEGATIVE) Urine Nitrite (NEGATIVE) Urine Bilirubin (NEGATIVE) Urine Urobilinogen (0.2-1.0) E.U./dL Ur Leukocyte Esterase (NEGATIVE) Urine RBC /HPF Urine WBC /HPF Ur Epithelial Cells /LPF Urine Bacteria (NONE TO FEW) /HPF 02/25/20 02/25/20 Range/Units 07:12 09:20 WBC (4.0-10.2) K/uL RBC (3.77-5.09) M/uL Hgb (11.7-15.5) g/dL Hct (34.0-46.0) % MCV (84.0-98.0) fL MCH (28.2-33.3) pg MCHC (31.7-36.0) g/dL RDW (11.2-14.1) % Plt Count (150-350) K/uL Neut % (Auto) (45.0-80.0) % Lymph % (Auto) (10.0-50.0) % [place] % (Auto) (2.0-14.0) % Eos % (Auto) (0.0-5.0) % Baso % (Auto) (0.0-2.0) % Neut # (Auto) (1.40-7.00) K/uL Lymph # (Auto) (0.50-3.50) K/uL [place] # (Auto) (0.00-1.00) K/uL Eos # (Auto) (0.00-0.50) K/uL Baso # (Auto) (0.00-0.20) K/uL PT (9.5-12.0) SEC INR APTT (24.5-32.8) SEC D-Dimer, Quantitative (0-400) ng/mL Sodium (136-145) mmol/L Potassium (3.5-5.1) mmol/L Chloride (98-107) mmol/L Carbon Dioxide (21.0-32.0) mmol/L BUN (7-18) mg/dL Creatinine (0.51-1.17) mg/dL Est Cr Clr Drug Dosing Estimated GFR (MDRD) mL/min Glucose (74-106) mg/dL POC Glucose (65-110) mg/dl Hemoglobin A1c 6.2 H (4.3-5.7) % Lactic Acid (0.4-2.0) mmol/L Uric Acid (2.6-7.2) mg/dL Calcium (8.5-10.1) mg/dL Magnesium (1.8-2.4) mg/dL Iron (50-175) ug/dL TIBC (250-450) ug/dL % Saturation Total Bilirubin (0.2-1.0) mg/dL AST (15-37) U/L ALT (12-78) U/L Alkaline Phosphatase (46-116) IU/L Creatine Kinase (26-308) U/L Creatine Kinase Index (0.0-2.5) % CK-MB (CK-2) (0.00-3.60) ng/mL Troponin I (0.000-0.056) ng/mL NT-Pro-B Natriuret Pep (0-125) pg/mL Total Protein (6.4-8.2) g/dL Albumin (3.4-5.0) g/dL Triglycerides (30-150) mg/dL Cholesterol (100-200) mg/dL LDL Cholesterol, Calc (0-100) mg/dL HDL Cholesterol (40-60) mg/dL TSH, Ultra Sensitive (0.358-3.740) mIU/mL Specimen Type Urincc Urine Color Yellow Urine Appearance Clear Urine pH 7.0 (5.0-9.0) Ur Specific [place] 1.020 (1.005-1.030) Urine Protein Negative (NEGATIVE) mg/dL Urine Glucose (UA) Negative (NEGATIVE) mg/dL Urine Ketones Negative (NEGATIVE) mg/dL Urine Occult Blood Negative (NEGATIVE) Urine Nitrite Negative (NEGATIVE) Urine Bilirubin Negative (NEGATIVE) Urine Urobilinogen 0.2 (0.2-1.0) E.U./dL Ur Leukocyte Esterase Small H (NEGATIVE) Urine RBC Not seen /HPF Urine WBC 5-10 H /HPF Ur Epithelial Cells Few /LPF Urine Bacteria Few (NONE TO FEW) /HPF Laboratory Tests 02/24/20 02/24/20 02/24/20 Range/Units 19:30 19:30 19:30 WBC 7.4 (4.0-10.2) K/uL RBC 3.48 L (3.77-5.09) M/uL Hgb 10.1 L (11.7-15.5) g/dL Hct 32.0 L (34.0-46.0) % MCV 92.0 (84.0-98.0) fL MCH 29.0 (28.2-33.3) pg MCHC 31.6 L (31.7-36.0) g/dL RDW 15.7 H (11.2-14.1) % Plt Count 232 (150-350) K/uL Neut % (Auto) 80.0 (45.0-80.0) % Lymph % (Auto) 9.3 L (10.0-50.0) % [place] % (Auto) 9.4 (2.0-14.0) % Eos % (Auto) 0.9 (0.0-5.0) % Baso % (Auto) 0.4 (0.0-2.0) % Neut # (Auto) 5.94 (1.40-7.00) K/uL Lymph # (Auto) 0.69 (0.50-3.50) K/uL [place] # (Auto) 0.70 (0.00-1.00) K/uL Eos # (Auto) 0.07 (0.00-0.50) K/uL Baso # (Auto) 0.03 (0.00-0.20) K/uL PT 10.4 (9.5-12.0) SEC INR 1.0 APTT 25.9 (24.5-32.8) SEC D-Dimer, Quantitative 604 H (0-400) ng/mL Sodium (136-145) mmol/L Potassium (3.5-5.1) mmol/L Chloride (98-107) mmol/L Carbon Dioxide (21.0-32.0) mmol/L BUN (7-18) mg/dL Creatinine (0.51-1.17) mg/dL Est Cr Clr Drug Dosing Estimated GFR (MDRD) mL/min Glucose (74-106) mg/dL POC Glucose (65-110) mg/dl Hemoglobin A1c (4.3-5.7) % Lactic Acid (0.4-2.0) mmol/L Uric Acid (2.6-7.2) mg/dL Calcium (8.5-10.1) mg/dL Magnesium (1.8-2.4) mg/dL Iron (50-175) ug/dL TIBC (250-450) ug/dL % Saturation Total Bilirubin (0.2-1.0) mg/dL AST (15-37) U/L ALT (12-78) U/L Alkaline Phosphatase (46-116) IU/L Creatine Kinase (26-308) U/L Creatine Kinase Index (0.0-2.5) % CK-MB (CK-2) (0.00-3.60) ng/mL Troponin I (0.000-0.056) ng/mL NT-Pro-B Natriuret Pep (0-125) pg/mL Total Protein (6.4-8.2) g/dL Albumin (3.4-5.0) g/dL Triglycerides (30-150) mg/dL Cholesterol (100-200) mg/dL LDL Cholesterol, Calc (0-100) mg/dL HDL Cholesterol (40-60) mg/dL TSH, Ultra Sensitive (0.358-3.740) mIU/mL Specimen Type Urine Color Urine Appearance Urine pH (5.0-9.0) Ur Specific [place] (1.005-1.030) Urine Protein (NEGATIVE) mg/dL Urine Glucose (UA) (NEGATIVE) mg/dL Urine Ketones (NEGATIVE) mg/dL Urine Occult Blood (NEGATIVE) Urine Nitrite (NEGATIVE) Urine Bilirubin (NEGATIVE) Urine Urobilinogen (0.2-1.0) E.U./dL Ur Leukocyte Esterase (NEGATIVE) Urine RBC /HPF Urine WBC /HPF Ur Epithelial Cells /LPF Urine Bacteria (NONE TO FEW) /HPF 02/24/20 02/24/20 02/25/20 Range/Units 19:30 19:30 02:44 WBC (4.0-10.2) K/uL RBC (3.77-5.09) M/uL Hgb (11.7-15.5) g/dL Hct (34.0-46.0) % MCV (84.0-98.0) fL MCH (28.2-33.3) pg MCHC (31.7-36.0) g/dL RDW (11.2-14.1) % Plt Count (150-350) K/uL Neut % (Auto) (45.0-80.0) % Lymph % (Auto) (10.0-50.0) % [place] % (Auto) (2.0-14.0) % Eos % (Auto) (0.0-5.0) % Baso % (Auto) (0.0-2.0) % Neut # (Auto) (1.40-7.00) K/uL Lymph # (Auto) (0.50-3.50) K/uL [place] # (Auto) (0.00-1.00) K/uL Eos # (Auto) (0.00-0.50) K/uL Baso # (Auto) (0.00-0.20) K/uL PT (9.5-12.0) SEC INR APTT (24.5-32.8) SEC D-Dimer, Quantitative (0-400) ng/mL Sodium 135 L (136-145) mmol/L Potassium 4.0 (3.5-5.1) mmol/L Chloride 100 (98-107) mmol/L Carbon Dioxide 23.4 (21.0-32.0) mmol/L BUN 26 H (7-18) mg/dL Creatinine 1.50 H (0.51-1.17) mg/dL Est Cr Clr Drug Dosing TNP Estimated GFR (MDRD) 34 mL/min Glucose 165 H (74-106) mg/dL POC Glucose 104 (65-110) mg/dl Hemoglobin A1c (4.3-5.7) % Lactic Acid 1.4 (0.4-2.0) mmol/L Uric Acid 4.8 (2.6-7.2) mg/dL Calcium 9.1 (8.5-10.1) mg/dL Magnesium 1.9 (1.8-2.4) mg/dL Iron (50-175) ug/dL TIBC (250-450) ug/dL % Saturation Total Bilirubin 0.3 (0.2-1.0) mg/dL AST 27 (15-37) U/L ALT 21 (12-78) U/L Alkaline Phosphatase 66 (46-116) IU/L Creatine Kinase 80 (26-308) U/L Creatine Kinase Index 1.9 (0.0-2.5) % CK-MB (CK-2) 1.50 (0.00-3.60) ng/mL Troponin I 0.032 (0.000-0.056) ng/mL NT-Pro-B Natriuret Pep 1094 H (0-125) pg/mL Total Protein 7.0 (6.4-8.2) g/dL Albumin 3.4 (3.4-5.0) g/dL Triglycerides (30-150) mg/dL Cholesterol (100-200) mg/dL LDL Cholesterol, Calc (0-100) mg/dL HDL Cholesterol (40-60) mg/dL TSH, Ultra Sensitive 1.347 (0.358-3.740) mIU/mL Specimen Type Urine Color Urine Appearance Urine pH (5.0-9.0) Ur Specific [place] (1.005-1.030) Urine Protein (NEGATIVE) mg/dL Urine Glucose (UA) (NEGATIVE) mg/dL Urine Ketones (NEGATIVE) mg/dL Urine Occult Blood (NEGATIVE) Urine Nitrite (NEGATIVE) Urine Bilirubin (NEGATIVE) Urine Urobilinogen (0.2-1.0) E.U./dL Ur Leukocyte Esterase (NEGATIVE) Urine RBC /HPF Urine WBC /HPF Ur Epithelial Cells /LPF Urine Bacteria (NONE TO FEW) /HPF 02/25/20 02/25/20 02/25/20 Range/Units 07:12 07:12 07:12 WBC 4.9 (4.0-10.2) K/uL RBC 3.18 L (3.77-5.09) M/uL Hgb 9.2 L (11.7-15.5) g/dL Hct 29.3 L (34.0-46.0) % MCV 92.1 (84.0-98.0) fL MCH 28.9 (28.2-33.3) pg MCHC 31.4 L (31.7-36.0) g/dL RDW 15.7 H (11.2-14.1) % Plt Count 194 (150-350) K/uL Neut % (Auto) 73.6 (45.0-80.0) % Lymph % (Auto) 12.1 (10.0-50.0) % [place] % (Auto) 11.5 (2.0-14.0) % Eos % (Auto) 2.0 (0.0-5.0) % Baso % (Auto) 0.8 (0.0-2.0) % Neut # (Auto) 3.59 (1.40-7.00) K/uL Lymph # (Auto) 0.59 (0.50-3.50) K/uL [place] # (Auto) 0.56 (0.00-1.00) K/uL Eos # (Auto) 0.10 (0.00-0.50) K/uL Baso # (Auto) 0.04 (0.00-0.20) K/uL PT (9.5-12.0) SEC INR APTT (24.5-32.8) SEC D-Dimer, Quantitative (0-400) ng/mL Sodium 137 (136-145) mmol/L Potassium 3.9 (3.5-5.1) mmol/L Chloride 103 (98-107) mmol/L Carbon Dioxide 23.2 (21.0-32.0) mmol/L BUN 25 H (7-18) mg/dL Creatinine 1.48 H (0.51-1.17) mg/dL Est Cr Clr Drug Dosing 25.18 Estimated GFR (MDRD) 34 mL/min Glucose 103 (74-106) mg/dL POC Glucose (65-110) mg/dl Hemoglobin A1c (4.3-5.7) % Lactic Acid (0.4-2.0) mmol/L Uric Acid (2.6-7.2) mg/dL Calcium 9.0 (8.5-10.1) mg/dL Magnesium (1.8-2.4) mg/dL Iron 25 L (50-175) ug/dL TIBC 327 (250-450) ug/dL % Saturation [id number] Total Bilirubin 0.4 (0.2-1.0) mg/dL AST 26 (15-37) U/L ALT 19 (12-78) U/L Alkaline Phosphatase 47 (46-116) IU/L Creatine Kinase 78 (26-308) U/L Creatine Kinase Index 1.5 (0.0-2.5) % CK-MB (CK-2) 1.20 (0.00-3.60) ng/mL Troponin I 0.083 H* (0.000-0.056) ng/mL NT-Pro-B Natriuret Pep (0-125) pg/mL Total Protein 6.3 L (6.4-8.2) g/dL Albumin 3.1 L (3.4-5.0) g/dL Triglycerides 140 (30-150) mg/dL Cholesterol 126 (100-200) mg/dL LDL Cholesterol, Calc 71 (0-100) mg/dL HDL Cholesterol 27 L (40-60) mg/dL TSH, Ultra Sensitive (0.358-3.740) mIU/mL Specimen Type Urine Color Urine Appearance Urine pH (5.0-9.0) Ur Specific [place] (1.005-1.030) Urine Protein (NEGATIVE) mg/dL Urine Glucose (UA) (NEGATIVE) mg/dL Urine Ketones (NEGATIVE) mg/dL Urine Occult Blood (NEGATIVE) Urine Nitrite (NEGATIVE) Urine Bilirubin (NEGATIVE) Urine Urobilinogen (0.2-1.0) E.U./dL Ur Leukocyte Esterase (NEGATIVE) Urine RBC /HPF Urine WBC /HPF Ur Epithelial Cells /LPF Urine Bacteria (NONE TO FEW) /HPF 02/25/20 02/25/20 Range/Units 07:12 09:20 WBC (4.0-10.2) K/uL RBC (3.77-5.09) M/uL Hgb (11.7-15.5) g/dL Hct (34.0-46.0) % MCV (84.0-98.0) fL MCH (28.2-33.3) pg MCHC (31.7-36.0) g/dL RDW (11.2-14.1) % Plt Count (150-350) K/uL Neut % (Auto) (45.0-80.0) % Lymph % (Auto) (10.0-50.0) % [place] % (Auto) (2.0-14.0) % Eos % (Auto) (0.0-5.0) % Baso % (Auto) (0.0-2.0) % Neut # (Auto) (1.40-7.00) K/uL Lymph # (Auto) (0.50-3.50) K/uL [place] # (Auto) (0.00-1.00) K/uL Eos # (Auto) (0.00-0.50) K/uL Baso # (Auto) (0.00-0.20) K/uL PT (9.5-12.0) SEC INR APTT (24.5-32.8) SEC D-Dimer, Quantitative (0-400) ng/mL Sodium (136-145) mmol/L Potassium (3.5-5.1) mmol/L Chloride (98-107) mmol/L Carbon Dioxide (21.0-32.0) mmol/L BUN (7-18) mg/dL Creatinine (0.51-1.17) mg/dL Est Cr Clr Drug Dosing Estimated GFR (MDRD) mL/min Glucose (74-106) mg/dL POC Glucose (65-110) mg/dl Hemoglobin A1c 6.2 H (4.3-5.7) % Lactic Acid (0.4-2.0) mmol/L Uric Acid (2.6-7.2) mg/dL Calcium (8.5-10.1) mg/dL Magnesium (1.8-2.4) mg/dL Iron (50-175) ug/dL TIBC (250-450) ug/dL % Saturation Total Bilirubin (0.2-1.0) mg/dL AST (15-37) U/L ALT (12-78) U/L Alkaline Phosphatase (46-116) IU/L Creatine Kinase (26-308) U/L Creatine Kinase Index (0.0-2.5) % CK-MB (CK-2) (0.00-3.60) ng/mL Troponin I (0.000-0.056) ng/mL NT-Pro-B Natriuret Pep (0-125) pg/mL Total Protein (6.4-8.2) g/dL Albumin (3.4-5.0) g/dL Triglycerides (30-150) mg/dL Cholesterol (100-200) mg/dL LDL Cholesterol, Calc (0-100) mg/dL HDL Cholesterol (40-60) mg/dL TSH, Ultra Sensitive (0.358-3.740) mIU/mL Specimen Type Urincc Urine Color Yellow Urine Appearance Clear Urine pH 7.0 (5.0-9.0) Ur Specific [place] 1.020 (1.005-1.030) Urine Protein Negative (NEGATIVE) mg/dL Urine Glucose (UA) Negative (NEGATIVE) mg/dL Urine Ketones Negative (NEGATIVE) mg/dL Urine Occult Blood Negative (NEGATIVE) Urine Nitrite Negative (NEGATIVE) Urine Bilirubin Negative (NEGATIVE) Urine Urobilinogen 0.2 (0.2-1.0) E.U./dL Ur Leukocyte Esterase Small H (NEGATIVE) Urine RBC Not seen /HPF Urine WBC 5-10 H /HPF Ur Epithelial Cells Few /LPF Urine Bacteria Few (NONE TO FEW) /HPF [facility] Results - Last 24 hrs: Urine culture and sensitivity set up on 02/25/2020 Med Orders - Current: Current Medications Acetaminophen (Tylenol Arthritis Pain) 650 mg PO DAILY [facility] Last Admin: 02/25/20 08:08 Dose: 650 mg Documented by: Acetaminophen (Tylenol) 650 mg PO Q4H PRN PRN Reason: Pain Alogliptin Benzoate (Alogliptin) 12.5 mg PO DAILY [facility] Last Admin: 02/25/20 08:08 Dose: 12.5 mg Documented by: Aspirin (Ecotrin) 325 mg PO DAILY [facility] Last Admin: 02/25/20 08:13 Dose: 325 mg Documented by: Cholecalciferol (Vitamin D3) 25 mcg PO DAILY [facility] Last Admin: 02/25/20 08:08 Dose: 25 mcg Documented by: Cranberry (Cranberry) 500 mg PO DAILY [facility] Last Admin: 02/25/20 08:08 Dose: 500 mg Documented by: Diltiazem HCl (Cardizem Cd) 120 mg PO BEDTIME [facility] Last Admin: 02/24/20 21:20 Dose: 120 mg Documented by: Enoxaparin Sodium (Lovenox) 40 mg SUBCUT Q24H [facility] Last Admin: 02/24/20 21:24 Dose: 40 mg Documented by: Fenofibrate (Fenofibrate) 134 mg PO BEDTIME [facility] Ferrous Sulfate (Ferrous Sulfate) 325 mg PO DAILY [facility] Last Admin: 02/25/20 08:08 Dose: 325 mg Documented by: Magnesium Oxide (Magnesium Oxide) 400 mg PO BID [facility] Last Admin: 02/25/20 08:08 Dose: 400 mg Documented by: Metformin HCl (Glucophage) 1,000 mg PO BIDMEALS [facility] Last Admin: 02/25/20 08:08 Dose: 1,000 mg Documented by: Pioglitazone HCl (Actos) 45 mg PO DAILY [facility] Last Admin: 02/25/20 08:10 Dose: 45 mg Documented by: Sodium Chloride (Saline Flush) 10 ml FLUSH ASDIRECTED PRN PRN Reason: Keep Vein Open Sodium Chloride (Saline Flush) 10 ml FLUSH ASDIRECTED PRN PRN Reason: Keep Vein Open Sodium Chloride (Saline Flush) 10 ml FLUSH Q12HR PRN PRN Reason: Keep Vein Open Temazepam (Restoril) 15 mg PO BEDTIME PRN PRN Reason: Insomnia Trimethoprim/Sulfamethoxazole (Septra Ds) 1 tab PO BID [facility] Last Admin: 02/25/20 08:10 Dose: 1 tab Documented by: Discontinued Medications Aspirin (Aspirin) 324 mg CHEW ONETIME ONE Stop: 02/24/20 18:46 Last Admin: 02/24/20 19:02 Dose: 324 mg Documented by: Cyanocobalamin (Vitamin B12) 1,000 mcg IM Q30D [facility] Famotidine (Pepcid) 40 mg IVPUSH ONETIME ONE Stop: 02/24/20 18:46 Last Admin: 02/24/20 19:06 Dose: 40 mg Documented by: Fenofibrate (Fenofibrate) 134 mg PO ONETIME ONE Stop: 02/24/20 22:35 Last Admin: 02/24/20 23:10 Dose: 134 mg Documented by: Lactated Ringer's (Ringers, Lactated) 250 mls @ 250 mls/hr IV ASDIRECTED [facility] Stop: 02/25/20 03:45 Last Admin: 02/25/20 03:28 Dose: 250 mls/hr Documented by: Lisinopril (Prinivil) 10 mg PO DAILY [facility] Ticagrelor (Brilinta) 180 mg PO ONETIME ONE Stop: 02/24/20 18:46 Last Admin: 02/24/20 19:03 Dose: 180 mg Documented by: Trimethoprim/Sulfamethoxazole (Septra Ds) 1 tab PO ONETIME ONE Stop: 02/24/20 22:34 Last Admin: 02/24/20 23:10 Dose: 1 tab Documented by: - Exam Quality Assessment: Reports: DVT Prophylaxis (Lovenox). Denies: Supplemental Oxygen, Central Line/PICC, Urine Catheter, Skin Breakdown, Restraints General: Reports: Alert, Oriented, Cooperative, No Acute Distress HEENT: Reports: Pupils Equal, Pupils Reactive, EOMI, Mucous Membr. Moist/[place], Other (Patient is wearing glasses). Denies: Scleral Icterus Neck: Reports: Supple, Trachea Midline, No JVD, No Thyromegaly, Carotid Bruit (Mild bilateral carotid bruits). Denies: Lymphadenopathy Lungs: Reports: Clear to Auscultation, Normal Respiratory Effort Cardiovascular: Reports: Regular Rate, Regular Rhythm, No Murmurs. Denies: Gallops, Rubs GI/Abdominal Exam: Normal Bowel Sounds, Soft, Non-Tender, No Organomegaly, No Distention, No Abnormal Bruit, No Mass, Other (Obese). No: Guarding (Female) Exam: Deferred Rectal (Female) Exam: Deferred Back Exam: Reports: Full Range of Motion, Other (Mild kyphosis). 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 No: Arthur's Sign Skin: Reports: Other (As above). Denies: Ecchymosis Wound/Incisions: Reports: Healing Well (By history) Neurological: Reports: No New Focal Deficit, Other (No clinical orthostasis) Psy/Mental Status: Reports: Alert, Normal Affect, Normal Mood. Denies: Agitated, Hallucinations, Withdrawal Symptoms EKG INTERPRETATION EKG Date: 02/25/20 Time: 07:45 Rhythm: Other (Sinus bradycardia) Rate (Beats/Min): 58 [place]: Normal (Neutral cardiac axis) P-Wave: Present (Mild diffuse biphasic P waves) QRS: Normal (0.09 seconds) ST-T: Other (Stable T wave inversion in lead V1 with new T wave inversions in leads V2 through V4) QT: Normal DE/PQ Interval: 0.18 seconds with mild poor R wave progression in the anterior leads Comparison: Change From Previous EKG (New progressive T wave inversion and anterior wall cardiac ischemia since last EKG on 02/24/2020) EKG Interpretation Comments: 1. Anterior wall cardiac ischemia 2. Sinus bradycardia 3. Left atrial enlargement
[2020-02-25] MEDS ORDERED: Fenofibrate,Micronized 134 MG Cap PO SCH (20:00)
[2020-03-14] MEDS ORDERED: Cyanocobalamin (Vitamin B12) 1,000 MCG/ML SDV IM SCH (09:00)
== END 2020-02-25 12:20 | DRG 309 ==
LOC: LL.ED 18:31 → LL.MS 20:10 → UNDOADMIN 20:10 → LL.MS 20:16 → UNDODISIN 02-25 12:20
PROVIDERS: ADMIT Family Medicine; ATTEND Family Medicine
DX: I47.1 Supraventricular tachycardia (principal); I13.0 Hypertensive heart and chronic kidney disease with heart failure and stage 1 through stage 4 chronic kidney disease, or unspecified chronic kidney disease; I10 Essential (primary) hypertension; M19.90 Unspecified osteoarthritis, unspecified site; L03.113 Cellulitis of right upper limb; N30.00 Acute cystitis without hematuria; E11.9 Type 2 diabetes mellitus without complications; R07.9 Chest pain, unspecified; D64.9 Anemia, unspecified; N28.9 Disorder of kidney and ureter, unspecified; E87.1 Hypo-osmolality and hyponatremia; R79.1 Abnormal coagulation profile; H54.7 Unspecified visual loss; G89.29 Other chronic pain; M54.9 Dorsalgia, unspecified; M54.2 Cervicalgia; E55.9 Vitamin D deficiency, unspecified; E53.8 Deficiency of other specified B group vitamins; I25.10 Atherosclerotic heart disease of native coronary artery without angina pectoris; Z88.6 Allergy status to analgesic agent; Z79.84 Long term (current) use of oral hypoglycemic drugs; I50.9 Heart failure, unspecified; R79.89 Other specified abnormal findings of blood chemistry; E78.5 Hyperlipidemia, unspecified; M89.49 Other hypertrophic osteoarthropathy, multiple sites; K21.9 Gastro-esophageal reflux disease without esophagitis; N18.2 Chronic kidney disease, stage 2 (mild); E11.22 Type 2 diabetes mellitus with diabetic chronic kidney disease; E83.42 Hypomagnesemia; D50.9 Iron deficiency anemia, unspecified; E88.09 Other disorders of plasma-protein metabolism, not elsewhere classified; I49.5 Sick sinus syndrome; I25.9 Chronic ischemic heart disease, unspecified; Z79.82 Long term (current) use of aspirin; Z79.899 Other long term (current) drug therapy; Z88.0 Allergy status to penicillin; Z88.5 Allergy status to narcotic agent; Z91.041 Radiographic dye allergy status; Z90.49 Acquired absence of other specified parts of digestive tract; Z90.710 Acquired absence of both cervix and uterus; Z87.891 Personal history of nicotine dependence
CPT/HCPCS: 36415; 71045; 80053; 80061; 81001; 82550; 82553; 82962; 83036; 83540; 83550; 83605; 83735; 83880; 84443; 84484; 84550; 85025; 85379; 85610; 85730; 87086; 87088; 87186; 93005; 96374; 99285-25; A9270-GY; J1650; J3490; J7120

== ENCOUNTER 2020-06-08 16:08 | Emergency (ER) | payer MEDICARE, MEDICAID ==
--- NOTE | 2020-06-08 17:04 | EDM.PDOC ---
ED HPI GENERAL MEDICAL PROBLEM - General Chief Complaint: Back Pain or Injury Stated Complaint: low back pain Time Seen by Provider: 06/08/20 16:32 Source of Information: Reports: Patient History Limitations: Reports: No Limitations - History of Present Illness INITIAL COMMENTS - FREE TEXT/NARRATIVE: Patient comes to ER with complaint of low back pain. Says it is her usual chr onic pain, just worse today. Has had it for years. Failed trigger point injection therapy last spring. Is doing PT. Lives alone but has family near to assist. Denies new injury/fall. Denies feeling ill with any symptoms of infection. No fevers. No change in pattern of pain. No other acute complaints. Has not taken anything for it. Reports she takes an "arthritis" pill daily at home but does not remember if it has Tylenol. Unable to reconcile med list be previous records indicate she was on Tylenol Arthritis once a day. She says no one ever told her what to take if her back hurt more and no one ever mentioned Tylenol to her. Reported to nursing staff that she had runny nose. Denied this during ROS. - Related Data Allergies Allergy/AdvReac Type Severity Reaction Status Date / Time Penicillins Allergy Hives Verified 02/24/20 18:41 tramadol Allergy Nausea Verified 02/24/20 18:41 yellow dye Allergy Itching Verified 02/24/20 18:41 Home Meds: Home Meds Aspirin [Ecotrin] 325 mg PO DAILY 04/24/14 [History] Cholecalciferol (Vitamin D3) [Vitamin D] 1,000 unit PO DAILY 04/24/14 [History] Fenofibrate,Micronized [Fenofibrate] 134 mg PO BEDTIME 04/24/14 [History] Ferrous Sulfate 325 mg PO DAILY 04/24/14 [History] Magnesium Oxide [Magnesium] 500 mg PO BID 04/24/14 [History] Moexipril HCl [Moexipril] 7.5 mg PO DAILY 04/24/14 [History] Pioglitazone HCl 45 mg PO DAILY 04/24/14 [History] metFORMIN [Glucophage] 1,000 mg PO BIDM 04/24/14 [History] Cyanocobalamin (Vitamin B-12) [Cyanocobalamin Injection] 1,000 mcg IM Q30D 09/07/19 [History] SitaGLIPtin [Januvia] 100 mg PO DAILY 09/07/19 [History] Acetaminophen [Tylenol Arthritis] 1 tab PO DAILY 10/18/19 [History] Cranberry 500 mg PO DAILY 02/24/20 [History] Sulfamethoxazole/Trimethoprim [Septra DS] 1 tab PO BID 02/24/20 [History] Past Medical History HEENT History: Reports: Impaired Vision, Other (See Below) Other HEENT History: The patient does wear glasses. Corpus palatinus. Cardiovascular History: Reports: High Cholesterol, Hypertension, Other (See Below) Other Cardiovascular History: Dyslipidemia. Respiratory History: Reports: Intubation, Previous Gastrointestinal History: Reports: Cholelithiasis, Chronic Diarrhea, GERD Genitourinary History: Reports: UTI, Recurrent, Other (See Below) Other Genitourinary History: Benign left renal cyst. 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 Full term without complications during pregnancies or deliveries. Musculoskeletal History: Reports: Arthritis, Back Pain, Chronic, Fracture, Neck Pain, Chronic, Osteoarthritis, Osteoporosis, Other (See Below) Other Musculoskeletal History: Right wrist styloid fracture on 01/01/2016. Chronic low back pain with left-sided radiculopathy and previous epidural steroid injections and pain clinic management. Neurological History: Reports: Other (See Below) Other Neuro History: Recurrent falls with the patient needing a walker and cane. Psychiatric History: Reports: None Other Psychiatric History: Spouse 2 years ago Endocrine/Metabolic History: Reports: Diabetes, Type II, Hypomagnesemia, Obesity/BMI 30+, Osteopenia, Osteoporosis, Vitamin D Deficiency Hematologic History: Reports: Anemia, B12 Deficiency, Iron Deficiency Immunologic History: Reports: None Oncologic (Cancer) History: Reports: None Dermatologic History: Reports: None - Infectious Disease History Infectious Disease History: Reports: MRSA - Past Surgical History Head Surgeries/Procedures: Reports: None HEENT Surgical History: Reports: Adenoidectomy, Oral Surgery, Tonsillectomy, Other (See Below) Other HEENT Surgeries/Procedures: Multiple teeth extractions. Tonsillectomy and adenoidectomy as a child. Cardiovascular Surgical History: Reports: None Respiratory Surgical History: Reports: None Other Respiratory Surgeries/Procedures: Laparoscopic cholecystectomy on 10/15/2011. Colonoscopy on 09/09/2008. GI Surgical History: Reports: Cholecystectomy, Colonoscopy, Other (See Below) Female Surgical History: Reports: Hysterectomy, Salpingo-Oophorectomy, Other (See Below) Other Female Surgeries/Procedures: Complete hysterectomy with bilateral salpingo-oophorectomy at unknown age secondary to dysfunctional uterine bleeding. Endocrine Surgical History: Reports: None Neurological Surgical History: Reports: Lumbar Spine, Other (See Below) Other Neurological Surgeries/Procedures: Patient with unknown type of back surgery possibly in the . Musculoskeletal Surgical History: Reports: None Oncologic Surgical History: Reports: None Dermatological Surgical History: Reports: None - Past Imaging History Past Imaging History: Reports: Carotid US (06/15/2001), Mammogram (Last mammogram on 04/07/2009), MRI (MRI of the lumbar spine on 01/16/2019.), Ultrasound (Abdominal and pelvic ultrasound on 09/18/2011.) Social & Family History - Family History HEENT: Reports: None Cardiac: Reports: CAD, [place] Other Cardiac Family History: Father from [place] in his 70s. Respiratory: Reports: None GI: Reports: None : Reports: None OBGYN: Reports: None Musculoskeletal: Reports: Arthritis, Muscular Dystrophy, RA Other Musculoskeletal Family History: Son from muscular dystrophy. Mother with rheumatoid arthritis. Neurological: Reports: None Psychiatric: Reports: None Endocrine/Metabolic: Reports: Diabetes, type II, IDDM Other Endocrine/Metabolic Family History: Sister with IDDM. Father and son with AODM. Hematologic: Reports: None Immunologic: Reports: SLE Dermatologic: Reports: None Oncologic: Reports: Breast, Other (See Below) Other Oncologic Family History: Mother with fatal breast cancer in her 70s. 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 Denies: Fever, Chills, Malaise, Night Sweats, Diaphoresis, Decreased Appetite, Weight Loss, Weight Gain HEENT: Reports: Glasses, Other (denies acute changes) Respiratory: Denies: Shortness of Breath, Wheezing, Pleuritic Chest Pain, Cough, Sputum, Hemoptysis Cardiovascular: Denies: Chest Pain, Dyspnea on Exertion, Lightheadedness, Palpitations, Syncope GI/Abdominal: Reports: No Symptoms : Reports: Incontinence, Other (no acute changes/UTI sx) Musculoskeletal: Reports: Back Pain, Other (no acute changes other than exacerbated low back pain/no radiation of back pain) Skin: Reports: Other (no acute changes) Neurological: Reports: Difficulty Walking (chronic/poor balance/deconditioning). Denies: Dizziness, Headache, Trouble Speaking, Change in Speech Psychiatric: Reports: No Symptoms ED EXAM, GENERAL - Physical Exam Exam: See Below Exam Limited By: No Limitations General Appearance: Alert, No Apparent Distress, Obese Eye Exam: Bilateral Eye: EOMI, PERRL Ears: Hearing Grossly Normal Nose: No: Nasal Deformity, Nasal Swelling, Nasal Drainage Throat/Mouth: Normal Lips, Normal Voice, No Airway Compromise Head: Atraumatic, Normocephalic Neck: Supple, Full Range of Motion Respiratory/Chest: No Respiratory Distress, Lungs Clear, Normal Breath Sounds, No Accessory Muscle Use, Chest Non-Tender Cardiovascular: Regular Rate, Rhythm, No Edema, No Murmur GI/Abdominal: Normal Bowel Sounds, Soft, Non-Tender, No Distention (Female) Exam: Deferred Rectal (Female) Exam: Deferred Back Exam: Other (tender diffusely along lumbar spine/bilateral soft tissue. No focal area of increased tenderness noted. Negative straight leg raise). No: Muscle Spasm Extremities: Non-Tender, Normal Capillary Refill. No: Leg Pain, Increased Warmth, Mottled, Pallor, Redness Neurological: Alert, Oriented, Other (equal tone/strength bilat) Psychiatric: Normal Affect, Normal Mood Skin Exam: Warm, Dry, Intact, Normal Color Course - Vital Signs Last Recorded V/S: Last Vital Signs Temp 37.6 C 06/08/20 16:08 Pulse 76 06/08/20 16:08 Resp 20 06/08/20 16:08 BP 109/35 L 06/08/20 16:42 Pulse Ox 95 06/08/20 16:08 - Orders/Labs/Meds Meds: Medications Discontinued Medications Generic Name Dose Route Start Last Admin Trade Name Freq PRN Reason Stop Dose Admin Prednisone 40 mg 06/08/20 16:52 06/08/20 17:10 Prednisone PO 06/08/20 16:53 40 mg ONETIME ONE Administration - Re-Assessments/Exams Free Text/Narrative Re-Assessment/Exam: Long time spent visiting with patient to get an idea of her usual baseline for pain/ability to function around house/attempts at improving pain in past. She declined any falls/acute changes that may have led to the exacerbation. Patient ultimately declined any acute workup that included labs/urine/imaging and was more interested in trying a single dose of prednisone and using Tylenol at home. She didn't seem to know that her arthritis medication is actually Tylenol. Based on review of chart it appears that she was taking this once a day in the past. OK to go to three times a day. She has been going to PT and plans on continuing PT. She is not interested in trying trigger point therapy again and said it was a 'waste of time' She is also interested in trying CBD oil. We discussed that it is not regulated and there can be a difference from brand to brand. Recommended to her that she get one that has independent third green party testing to verify strength of contents. Precautions reviewed. To return to ER if additional problems develop. Otherwise to follow up with Tristen at clinic. Diastolic BP noted to run low. Patient denied symptoms of hypotension. No dizziness/acute weakness/syncope reported. Again, to follow up as needed if problems develop and to get BP rechecked at clinic. Departure - Departure Time of Disposition: 17:15 Disposition: Home, Self-Care 01 Condition: Good Clinical Impression: Acute exacerbation of chronic low back pain - Discharge Information *PRESCRIPTION DRUG MONITORING PROGRAM REVIEWED*: Not Applicable *COPY OF PRESCRIPTION DRUG MONITORING REPORT IN PATIENT MAURO: Not Applicable Referrals: PCP,None [Primary Care Provider] - Forms: ED Department Discharge Additional Instructions: Double check how much Tylenol Arthritis you are taking at home. You can take 1-2 tablets at a time. You can take it once every 8 hours. MAXIMUM of 6 tablets a day. Consider picking up CBD oil at [facility]. There are other brands out there. Recommend trying [facility] for a few weeks. If no help try a different brand. Drops are good as it is easy to adjust the dose. Start at around 6-8mg daily for 3-4 days and increase by another drop every few days until you feel good improvement of pain. There are gel tabs too, it just is not easy to adjust dosing. CBD does not work right away. It takes a few days to notice a difference. Discuss increased pain with Mona Santos Wednesday and see if additional planning/change of treatment is needed. Follow up as needed for recheck if additional changes are noted. Sepsis Event Note (ED) - Evaluation Sepsis Screening Result: No Definite Risk - Focused Exam Vital Signs: Vital Signs Temp Pulse Resp BP Pulse Ox 06/08/20 16:42 109/35 L 06/08/20 16:08 37.6 C 76 20 85/42 L 95
[2020-06-08] MEDS: predniSONE 20 MG Tab PO ONE (17:10)
== END 2020-06-08 17:20 | disposition home or self-care (01) ==
LOC: LL.ED 16:08
DX: M54.5 Low back pain (principal); G89.29 Other chronic pain; I10 Essential (primary) hypertension; E11.9 Type 2 diabetes mellitus without complications; E66.9 Obesity, unspecified; Z88.0 Allergy status to penicillin; Z88.5 Allergy status to narcotic agent; Z91.041 Radiographic dye allergy status; Z79.82 Long term (current) use of aspirin; Z79.84 Long term (current) use of oral hypoglycemic drugs; Z79.899 Other long term (current) drug therapy; Z90.49 Acquired absence of other specified parts of digestive tract; Z90.710 Acquired absence of both cervix and uterus; Z68.29 Body mass index [BMI] 29.0-29.9, adult
CPT/HCPCS: 99284; J7512

== ENCOUNTER 2020-07-30 16:54 | Emergency (ER) | payer MEDICARE, MEDICAID ==
--- NOTE | 2020-07-30 17:17 | EDM.PDOC ---
ED HPI GENERAL MEDICAL PROBLEM - General Chief Complaint: Back Pain or Injury Stated Complaint: back pain Time Seen by Provider: 07/30/20 17:09 Source of Information: Reports: Patient History Limitations: Reports: No Limitations - History of Present Illness INITIAL COMMENTS - FREE TEXT/NARRATIVE: Pt presents to ER with increased low back pain Worse on the right compared to left Has hx/o chronic low back pain and has had MRI and gets recurrent SI joint injections No falls No new trauma Increased pain over past several days Onset: Gradual Duration: Day(s): Location: Reports: Back Lumbar Pain Score (Numeric/FACES): 10 - Related Data Allergies Allergy/AdvReac Type Severity Reaction Status Date / Time Penicillins Allergy Hives Verified 07/30/20 17:01 tramadol AdvReac Nausea Verified 07/30/20 17:01 yellow dye AdvReac Itching Verified 07/30/20 17:01 Home Meds: Home Meds Aspirin [Ecotrin] 325 mg PO DAILY PRN 04/24/14 [History] Fenofibrate,Micronized [Fenofibrate] 134 mg PO BEDTIME 04/24/14 [History] Magnesium Oxide [Magnesium] 500 mg PO BID 04/24/14 [History] Moexipril HCl [Moexipril] 7.5 mg PO DAILY 04/24/14 [History] Pioglitazone HCl 45 mg PO DAILY 04/24/14 [History] metFORMIN [Glucophage] 1,000 mg PO BIDM 04/24/14 [History] Cyanocobalamin (Vitamin B-12) [Cyanocobalamin Injection] 1,000 mcg IM Q30D 09/07/19 [History] SitaGLIPtin [Januvia] 100 mg PO DAILY 09/07/19 [History] Acetaminophen [Tylenol Arthritis] 2 tab PO TID 10/18/19 [History] Menthol [Biofreeze] 1 applic TP ASDIRECTED PRN 07/30/20 [History] Multivit-Minerals/Folic Acid [Multivitamin Gummies] 200 mcg PO DAILY 07/30/20 [History] Non-Formulary Medication [NF Drug] 1 each TOP ASDIRECTED PRN 07/30/20 [History] Past Medical History HEENT History: Reports: Impaired Vision, Other (See Below) Other HEENT History: The patient does wear glasses. Corpus palatinus. Cardiovascular History: Reports: High Cholesterol, Hypertension, Other (See Below) Other Cardiovascular History: Dyslipidemia. Respiratory History: Reports: Intubation, Previous Gastrointestinal History: Reports: Cholelithiasis, Chronic Diarrhea, GERD Genitourinary History: Reports: UTI, Recurrent, Other (See Below) Other Genitourinary History: Benign left renal cyst. 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 Full term without complications during pregnancies or deliveries. Musculoskeletal History: Reports: Arthritis, Back Pain, Chronic, Fracture, Neck Pain, Chronic, Osteoarthritis, Osteoporosis, Other (See Below) Other Musculoskeletal History: Right wrist styloid fracture on 01/01/2016. Chronic low back pain with left-sided radiculopathy and previous epidural steroid injections and pain clinic management. Neurological History: Reports: Other (See Below) Other Neuro History: Recurrent falls with the patient needing a walker and cane. Psychiatric History: Reports: None Other Psychiatric History: Spouse 2 years ago Endocrine/Metabolic History: Reports: Diabetes, Type II, Hypomagnesemia, Obesity/BMI 30+, Osteopenia, Osteoporosis, Vitamin D Deficiency Hematologic History: Reports: Anemia, B12 Deficiency, Iron Deficiency Immunologic History: Reports: None Oncologic (Cancer) History: Reports: None Dermatologic History: Reports: None - Infectious Disease History Infectious Disease History: Reports: MRSA - Past Surgical History Head Surgeries/Procedures: Reports: None HEENT Surgical History: Reports: Adenoidectomy, Oral Surgery, Tonsillectomy, Other (See Below) Other HEENT Surgeries/Procedures: Multiple teeth extractions. Tonsillectomy and adenoidectomy as a child. Cardiovascular Surgical History: Reports: None Respiratory Surgical History: Reports: None Other Respiratory Surgeries/Procedures: Laparoscopic cholecystectomy on 10/15/2011. Colonoscopy on 09/09/2008. GI Surgical History: Reports: Cholecystectomy, Colonoscopy, Other (See Below) Female Surgical History: Reports: Hysterectomy, Salpingo-Oophorectomy, Other (See Below) Other Female Surgeries/Procedures: Complete hysterectomy with bilateral salpingo-oophorectomy at unknown age secondary to dysfunctional uterine bleeding. Endocrine Surgical History: Reports: None Neurological Surgical History: Reports: Lumbar Spine, Other (See Below) Other Neurological Surgeries/Procedures: Patient with unknown type of back surgery possibly in the . Musculoskeletal Surgical History: Reports: None Oncologic Surgical History: Reports: None Dermatological Surgical History: Reports: None - Past Imaging History Past Imaging History: Reports: Carotid US (06/15/2001), Mammogram (Last mammogram on 04/07/2009), MRI (MRI of the lumbar spine on 01/16/2019.), Ultrasound (Abdominal and pelvic ultrasound on 09/18/2011.) Social & Family History - Family History HEENT: Reports: None Cardiac: Reports: CAD, [place] Other Cardiac Family History: Father from [place] in his 70s. Respiratory: Reports: None GI: Reports: None : Reports: None OBGYN: Reports: None Musculoskeletal: Reports: Arthritis, Muscular Dystrophy, RA Other Musculoskeletal Family History: Son from muscular dystrophy. Mother with rheumatoid arthritis. Neurological: Reports: None Psychiatric: Reports: None Endocrine/Metabolic: Reports: Diabetes, type II, IDDM Other Endocrine/Metabolic Family History: Sister with IDDM. Father and son with AODM. Hematologic: Reports: None Immunologic: Reports: SLE Dermatologic: Reports: None Oncologic: Reports: Breast, Other (See Below) Other Oncologic Family History: Mother with fatal breast cancer in her 70s. 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 .) ED ROS GENERAL - Review of Systems Review Of Systems: See Below Musculoskeletal: Reports: Back Pain ED EXAM,LOWER BACK PAIN/INJURY - Physical Exam Exam: See Below General Appearance: Alert, WD/WN, Mild Distress Back Exam: Decreased Range of Motion, Paraspinal Tenderness, Vertebral Tenderness Course - Vital Signs Last Recorded V/S: Last Vital Signs Temp 98.9 F 07/30/20 17:02 Pulse 79 07/30/20 17:02 Resp 22 H 07/30/20 17:02 BP 149/52 H 07/30/20 17:02 Pulse Ox 100 07/30/20 17:02 - Orders/Labs/Meds Orders: Active Orders 24 hr Category Date Time Status Ketorolac [Toradol] Med 07/30/20 17:12 Once 30 mg IM ONETIME ONE methylPREDNISolone Sod Succ [Solu-MEDROL] Med 07/30/20 17:13 Once 125 mg IM ONETIME ONE Meds: Medications Discontinued Medications Generic Name Dose Route Start Last Admin Trade Name Eleno PRN Reason Stop Dose Admin Ketorolac Tromethamine 30 mg 07/30/20 17:12 Toradol IM 07/30/20 17:13 ONETIME ONE Methylprednisolone Sodium Succinate 125 mg 07/30/20 17:13 Solu-Medrol IM 07/30/20 17:14 ONETIME ONE - Re-Assessments/Exams Free Text/Narrative Re-Assessment/Exam: 07/30/20 17:16 Pt with chronic low back pain Pt given Toradol 30 mg IM and Solu-medrol 125 mg IM in ER Departure - Departure Time of Disposition: 17:30 Disposition: Home, Self-Care 01 Clinical Impression: Acute exacerbation of chronic low back pain - Discharge Information *PRESCRIPTION DRUG MONITORING PROGRAM REVIEWED*: Not Applicable *COPY OF PRESCRIPTION DRUG MONITORING REPORT IN PATIENT MAURO: Not Applicable Instructions: Chronic Back Pain, [id number] Referrals: Mona Sarmiento PA [Primary Care Provider] - Additional Instructions: Follow up in clinic Sepsis Event Note (ED) - Evaluation Sepsis Screening Result: No Definite Risk - Focused Exam Vital Signs: Vital Signs Temp Pulse Resp BP Pulse Ox 07/30/20 17:02 98.9 F 79 22 H 149/52 H 100 - My Orders Last 24 Hours: My Active Orders 07/30/20 17:12 Ketorolac [Toradol] 30 mg IM ONETIME ONE 07/30/20 17:13 methylPREDNISolone Sod Succ [Solu-MEDROL] 125 mg IM ONETIME ONE - Assessment/Plan Last 24 Hours: My Active Orders 07/30/20 17:12 Ketorolac [Toradol] 30 mg IM ONETIME ONE 07/30/20 17:13 methylPREDNISolone Sod Succ [Solu-MEDROL] 125 mg IM ONETIME ONE
[2020-07-30] MEDS: Ketorolac 30 MG/ML SDV IM ONE (17:19)
[2020-07-30] MEDS: methylPREDNISolone Sodium Succinate 125 MG/2 ML SDV IM ONE (17:20)
== END 2020-07-30 17:45 | disposition home or self-care (01) ==
LOC: LL.ED 16:54
DX: M54.5 Low back pain (principal); G89.29 Other chronic pain; I10 Essential (primary) hypertension; E11.9 Type 2 diabetes mellitus without complications; M19.90 Unspecified osteoarthritis, unspecified site; E66.9 Obesity, unspecified; Z68.27 Body mass index [BMI] 27.0-27.9, adult; Z88.0 Allergy status to penicillin; Z88.5 Allergy status to narcotic agent; Z91.048 Other nonmedicinal substance allergy status; Z79.82 Long term (current) use of aspirin; Z79.899 Other long term (current) drug therapy
CPT/HCPCS: 96372; 99283; 99284; J1885; J2930

== ENCOUNTER 2020-08-01 07:40 | Emergency (ER) | payer MEDICARE, MEDICAID ==
--- NOTE | 2020-08-01 08:03 | EDM.PDOC ---
ED HPI GENERAL MEDICAL PROBLEM - General Chief Complaint: Back Pain or Injury Stated Complaint: back pain Time Seen by Provider: 08/01/20 07:52 Source of Information: Reports: Patient History Limitations: Reports: No Limitations - History of Present Illness INITIAL COMMENTS - FREE TEXT/NARRATIVE: Pt presents with low back pain Has hx/o chronic low back pain and has had SI joint injections in past Was also seen in ER several days ago for low back pain and given Toradol and Solu-medrol in ER at that time Pain is better but still present Has not followed up in clinic Onset: Gradual Duration: Day(s):, Intermittent Location: Reports: Back Quality: Reports: Ache Improves with: Reports: Immobilization Worsens with: Reports: Movement Treatments WRAPPER HANDS SPRAYER: Reports: Acetaminophen Lumbar Pain Score (Numeric/FACES): 8 - Related Data Allergies Allergy/AdvReac Type Severity Reaction Status Date / Time Penicillins Allergy Hives Verified 07/30/20 17:01 tramadol AdvReac Nausea Verified 07/30/20 17:01 yellow dye AdvReac Itching Verified 07/30/20 17:01 Home Meds: Home Meds Aspirin [Ecotrin] 325 mg PO DAILY PRN 04/24/14 [History] Fenofibrate,Micronized [Fenofibrate] 134 mg PO BEDTIME 04/24/14 [History] Magnesium Oxide [Magnesium] 500 mg PO BID 04/24/14 [History] Moexipril HCl [Moexipril] 7.5 mg PO DAILY 04/24/14 [History] Pioglitazone HCl 45 mg PO DAILY 04/24/14 [History] metFORMIN [Glucophage] 1,000 mg PO BIDM 04/24/14 [History] Cyanocobalamin (Vitamin B-12) [Cyanocobalamin Injection] 1,000 mcg IM Q30D 09/07/19 [History] SitaGLIPtin [Januvia] 100 mg PO DAILY 09/07/19 [History] Acetaminophen [Tylenol Arthritis] 2 tab PO TID 10/18/19 [History] Menthol [Biofreeze] 1 applic TP ASDIRECTED PRN 07/30/20 [History] Multivit-Minerals/Folic Acid [Multivitamin Gummies] 200 mcg PO DAILY 07/30/20 [History] Non-Formulary Medication [NF Drug] 1 each TOP ASDIRECTED PRN 07/30/20 [History] Past Medical History HEENT History: Reports: Impaired Vision, Other (See Below) Other HEENT History: The patient does wear glasses. Corpus palatinus. Cardiovascular History: Reports: High Cholesterol, Hypertension, Other (See Below) Other Cardiovascular History: Dyslipidemia. Respiratory History: Reports: Intubation, Previous Gastrointestinal History: Reports: Cholelithiasis, Chronic Diarrhea, GERD Genitourinary History: Reports: UTI, Recurrent, Other (See Below) Other Genitourinary History: Benign left renal cyst. VIDEO GAMES STORYWRITER History: Reports: Dysfunctional Uterine Bleeding, , Prolapsed Uterus Other VIDEO GAMES STORYWRITER History: Surgical menopause secondary to dysfunctional uterine bleeding as above. Full term without complications during pregnancies or deliveries. Musculoskeletal History: Reports: Arthritis, Back Pain, Chronic, Fracture, Neck Pain, Chronic, Osteoarthritis, Osteoporosis, Other (See Below) Other Musculoskeletal History: Right wrist styloid fracture on 01/01/2016. Chronic low back pain with left-sided radiculopathy and previous epidural steroid injections and pain clinic management. Neurological History: Reports: Other (See Below) Other Neuro History: Recurrent falls with the patient needing a walker and cane. Psychiatric History: Reports: None Other Psychiatric History: Spouse 2 years ago Endocrine/Metabolic History: Reports: Diabetes, Type II, Hypomagnesemia, Obesity/BMI 30+, Osteopenia, Osteoporosis, Vitamin D Deficiency Hematologic History: Reports: Anemia, B12 Deficiency, Iron Deficiency Immunologic History: Reports: None Oncologic (Cancer) History: Reports: None Dermatologic History: Reports: None - Infectious Disease History Infectious Disease History: Reports: MRSA - Past Surgical History Head Surgeries/Procedures: Reports: None HEENT Surgical History: Reports: Adenoidectomy, Oral Surgery, Tonsillectomy, Other (See Below) Other HEENT Surgeries/Procedures: Multiple teeth extractions. Tonsillectomy and adenoidectomy as a child. Cardiovascular Surgical History: Reports: None Respiratory Surgical History: Reports: None Other Respiratory Surgeries/Procedures: Laparoscopic cholecystectomy on 10/15/2011. Colonoscopy on 09/09/2008. GI Surgical History: Reports: Cholecystectomy, Colonoscopy, Other (See Below) Female Surgical History: Reports: Hysterectomy, Salpingo-Oophorectomy, Other (See Below) Other Female Surgeries/Procedures: Complete hysterectomy with bilateral salpingo-oophorectomy at unknown age secondary to dysfunctional uterine bleeding. Endocrine Surgical History: Reports: None Neurological Surgical History: Reports: Lumbar Spine, Other (See Below) Other Neurological Surgeries/Procedures: Patient with unknown type of back surgery possibly in the . Musculoskeletal Surgical History: Reports: None Oncologic Surgical History: Reports: None Dermatological Surgical History: Reports: None - Past Imaging History Past Imaging History: Reports: Carotid US (06/15/2001), Mammogram (Last mammogram on 04/07/2009), MRI (MRI of the lumbar spine on 01/16/2019.), Ultrasound (Abdominal and pelvic ultrasound on 09/18/2011.) Social & Family History - Family History HEENT: Reports: None Cardiac: Reports: CAD, [place] Other Cardiac Family History: Father from [place] in his 70s. Respiratory: Reports: None GI: Reports: None : Reports: None OBGYN: Reports: None Musculoskeletal: Reports: Arthritis, Muscular Dystrophy, RA Other Musculoskeletal Family History: Son from muscular dystrophy. Mother with rheumatoid arthritis. Neurological: Reports: None Psychiatric: Reports: None Endocrine/Metabolic: Reports: Diabetes, type II, IDDM Other Endocrine/Metabolic Family History: Sister with IDDM. Father and son with AODM. Hematologic: Reports: None Immunologic: Reports: SLE Dermatologic: Reports: None Oncologic: Reports: Breast, Other (See Below) Other Oncologic Family History: Mother with fatal breast cancer in her 70s. 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 .) ED ROS GENERAL - Review of Systems Review Of Systems: See Below Musculoskeletal: Reports: Back Pain ED EXAM,LOWER BACK PAIN/INJURY - Physical Exam Exam: See Below General Appearance: Alert, WD/WN, Mild Distress Back Exam: Decreased Range of Motion, Other (Diffusely tender) Course - Vital Signs Last Recorded V/S: Last Vital Signs Temp 97.7 F 08/01/20 07:43 Pulse 83 08/01/20 07:43 Resp 16 08/01/20 07:43 BP 124/41 L 08/01/20 07:43 Pulse Ox 99 08/01/20 07:43 - Orders/Labs/Meds Orders: Active Orders 24 hr Category Date Time Status Ketorolac [Toradol] Med 08/01/20 07:58 Once 30 mg IM ONETIME ONE methylPREDNISolone Sod Succ [Solu-MEDROL] Med 08/01/20 07:58 Once 125 mg IM ONETIME ONE Medication Orders Ketorolac Tromethamine (Toradol) 30 mg IM ONETIME ONE Stop: 08/01/20 07:59 Methylprednisolone Sodium Succinate (Solu-Medrol) 125 mg IM ONETIME ONE Stop: 08/01/20 07:59 Meds: Medications Generic Name Dose Route Start Last Admin Trade Name Eleno PRN Reason Stop Dose Admin Ketorolac Tromethamine 30 mg 08/01/20 07:58 Toradol IM 08/01/20 07:59 ONETIME ONE Methylprednisolone Sodium Succinate 125 mg 08/01/20 07:58 Solu-Medrol IM 08/01/20 07:59 ONETIME ONE - Re-Assessments/Exams Free Text/Narrative Re-Assessment/Exam: 08/01/20 08:02 Pt given Toradol 30 mg IM and Solu-medrol 125 mg IM in ER Pt needs to follow up in clinic Departure - Departure Time of Disposition: 08:10 Disposition: Home, Self-Care 01 Clinical Impression: Acute exacerbation of chronic low back pain - Discharge Information *PRESCRIPTION DRUG MONITORING PROGRAM REVIEWED*: Not Applicable *COPY OF PRESCRIPTION DRUG MONITORING REPORT IN PATIENT MAURO: Not Applicable Instructions: Chronic Back Pain, [id number] Referrals: Mona Sarmiento PA [Primary Care Provider] - Additional Instructions: Follow up in clinic Sepsis Event Note (ED) - Evaluation Sepsis Screening Result: No Definite Risk - Focused Exam Vital Signs: Vital Signs Temp Pulse Resp BP Pulse Ox 08/01/20 07:43 97.7 F 83 16 124/41 L 99 - My Orders Last 24 Hours: My Active Orders 08/01/20 07:58 Ketorolac [Toradol] 30 mg IM ONETIME ONE methylPREDNISolone Sod Succ [Solu-MEDROL] 125 mg IM ONETIME ONE - Assessment/Plan Last 24 Hours: My Active Orders 08/01/20 07:58 Ketorolac [Toradol] 30 mg IM ONETIME ONE methylPREDNISolone Sod Succ [Solu-MEDROL] 125 mg IM ONETIME ONE
[2020-08-01] MEDS: Loperamide 2 MG Tab PO ONE (08:15)
[2020-08-01] MEDS: Ondansetron 4 MG Tab.DIS PO ONE (08:16)
[2020-08-01] MEDS: Ketorolac 30 MG/ML SDV IM ONE (08:16)
[2020-08-01] MEDS: methylPREDNISolone Sodium Succinate 125 MG/2 ML SDV IM ONE (08:17)
== END 2020-08-01 09:35 | disposition home or self-care (01) ==
LOC: LL.ED 07:40
DX: M54.5 Low back pain (principal); G89.29 Other chronic pain; E78.5 Hyperlipidemia, unspecified; I10 Essential (primary) hypertension; M19.90 Unspecified osteoarthritis, unspecified site; E11.9 Type 2 diabetes mellitus without complications; E66.9 Obesity, unspecified; Z68.31 Body mass index [BMI] 31.0-31.9, adult; Z88.5 Allergy status to narcotic agent; Z88.0 Allergy status to penicillin; Z91.041 Radiographic dye allergy status; Z79.82 Long term (current) use of aspirin; Z79.84 Long term (current) use of oral hypoglycemic drugs; Z79.899 Other long term (current) drug therapy
CPT/HCPCS: 96372; 99283; 99284; A9270-GY; J1885; J2930

== ENCOUNTER 2020-08-15 18:09 | Emergency (ER) | payer MEDICARE, MEDICAID ==
[2020-08-15] MEDS ORDERED: Ondansetron 4 MG/2 ML SDV IVPUSH ONE (18:23)
[2020-08-15] MEDS ORDERED: Lactated Ringers 1,000 ML IV ONE (18:23)
[2020-08-15] MEDS ORDERED: metroNIDAZOLE/Normal Saline 500 MG in Premix Bag 1 BAG IV ONE (18:23)
[2020-08-15] MEDS ORDERED: Famotidine 20 MG/2 ML SDV IVPUSH ONE (18:23)
[2020-08-15] MEDS ORDERED: Pantoprazole 40 MG Vial IVPUSH ONE (18:23)
--- NOTE | 2020-08-15 18:23 | EDM.PDOC ---
ED HPI GENERAL MEDICAL PROBLEM - General Chief Complaint: Abdominal Pain Stated Complaint: abdominal pain Time Seen by Provider: 08/15/20 18:15 Source of Information: Reports: Patient, Group Home Records, Old Records ([facility] chart/EMR), Other ([facility] EMR) History Limitations: Reports: No Limitations - History of Present Illness INITIAL COMMENTS - FREE TEXT/NARRATIVE: Patient was brought to the emergency room via transport vehicle from [facility] for evaluation of a 9-day history of progressive diffuse nonspecific abdominal pain and cramping with the patient not having a bowel movement for the last 9 days. She is having some minor incontinence and stool smears with no treatment prior to arrival. The patient did have x-rays ordered by her regular provider on an outpatient basis prior to transfer to this emergency room with indication of possible beginning obstruction versus ileus based on these x-rays. She is a somewhat poor historian. No recent history of heartburn, emesis, diarrhea, melena, gross hematochezia, or any food intolerance, including fatty foods, etc.. She denies any gross hematuria, colic, or other UTI symptoms. The patient denies any chest pain/pressure, heart flutter, dizziness, orthostasis, orthopnea, diaphoresis, paresthesias, recent decreased exercise tolerance, or any other anginal-type symptoms. No recent history of abdominal pain, heartburn, nausea, diarrhea, melena, gross hematochezia, or any food intolerance, including fatty foods, etc.. She rates her discomfort at 100/10 Onset: Gradual, Other (As above) Duration: Constant, Getting Worse Location: Reports: Abdomen. Denies: Head, Face, Neck, Chest, Back, Pelvis, Upper Extremity, Left, Upper Extremity, Right, Radiates to Quality: Reports: Same as Previous Episode, Stabbing, Other (Cramping) Severity: Severe Improves with: Reports: None Worsens with: Reports: None Context: Reports: Other (As above). 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: Reports: Other (see below) (None) abdominal pain Pain Score (Numeric/FACES): 10 - Related Data Allergies Allergy/AdvReac Type Severity Reaction Status Date / Time Penicillins Allergy Hives Verified 08/15/20 18:18 tramadol AdvReac Nausea Verified 08/15/20 18:18 yellow dye AdvReac Itching Verified 08/15/20 18:18 Home Meds: Home Meds Fenofibrate,Micronized [Fenofibrate] 134 mg PO BEDTIME 04/24/14 [History] Pioglitazone HCl 45 mg PO DAILY 04/24/14 [History] metFORMIN [Glucophage] 1,000 mg PO BIDM 04/24/14 [History] Cyanocobalamin (Vitamin B-12) [Cyanocobalamin Injection] 1,000 mcg IM Q30D 09/07/19 [History] Acetaminophen [Tylenol Arthritis] 1 tab PO Q12HR 10/18/19 [History] Multivit-Minerals/Folic Acid [Multivitamin Gummies] 200 mcg PO DAILY 07/30/20 [History] Aspirin [Aspirin EC] 81 mg PO DAILY 08/15/20 [History] Bisacodyl [Laxative Suppository] 10 mg RC DAILY PRN 08/15/20 [History] Cholecalciferol (Vitamin D3) [Vitamin D3] 1,000 unit PO DAILY 08/15/20 [History] Docusate Sodium/Sennosides [Senna Plus] 2 each PO BID 08/15/20 [History] Enema Bag, Disposable [Enema Bag] 1 each RC ASDIRECTED PRN 08/15/20 [History] Ferrous Sulfate 325 mg PO DAILY 08/15/20 [History] Magnesium Hydroxide [Milk of Magnesia] 400 mg PO DAILY PRN 08/15/20 [History] Magnesium Oxide 400 mg PO BID 08/15/20 [History] Metoprolol Succinate [Toprol XL] 25 mg PO DAILY 08/15/20 [History] Nystatin [Nystatin Ointment] 1 applic TOP TID PRN 08/15/20 [History] bisacodyL [Bisacodyl] 5 mg PO Q12HR PRN 08/15/20 [History] polyethylene glycoL 3350 [MiraLAX] 17 gm PO DAILY PRN 08/15/20 [History] Past Medical History HEENT History: Reports: Impaired Vision, Other (See Below). Denies: Allergic Rhinitis, Cataract, Glaucoma, Hard of Hearing, Macular Degeneration, Otitis Media, Retinal Detachment Other HEENT History: The patient does wear glasses. Corpus palatinum. Cardiovascular History: Reports: Arrhythmia, CAD, Cardiomyopathy, Heart Murmur, High Cholesterol, Hypertension, [place], Other (See Below). Denies: Afib, Angina, Bypass, Heart Failure, PTCA, Stents Other Cardiovascular History: PSVT. History of D-dimer elevation. Dyslipidemia. Grade 2 diastolic dysfunction. Mild left atrial enlargement by echocardiogram. Respiratory History: Reports: Intubation, Previous. Denies: Asthma, Bronchitis, Recurrent, COPD, Intubation, Difficult, PE, Pneumonia, Recurrent, Pneumothorax, Sleep Apnea, TB Gastrointestinal History: Reports: Cholelithiasis, Chronic Constipation, Chronic Diarrhea, GERD. Denies: Celiac Disease, Colon Polyp, Fatty Liver, Fecal Incontinence, Gastritis, GI Bleed, Helicobacter Pylori, Inflammatory Bowel Disease, Irritable Bowel Syndrome, Jaundice, PUD Genitourinary History: Reports: Chronic Renal Insuffiency, Diabetic Nephropathy, Retention, Urinary, Urinary Incontinence, UTI, Recurrent, Other (See Below). Denies: Renal Calculus, STD Other Genitourinary History: Benign left renal cyst. [employer] History: Reports: Dysfunctional Uterine Bleeding, , Prolapsed Uterus. Denies: Endometriosis, Fibroids, Spontaneous : 3 Para: 3 LMP (Approximate): Other (See Below) Other [employer] History: Surgical menopause secondary to dysfunctional uterine bleeding as above. Full term without complications during pregnancies or deliveries. Musculoskeletal History: Reports: Arthritis, Back Pain, Chronic, Fracture, Neck Pain, Chronic, Osteoarthritis, Osteoporosis, Other (See Below). Denies: Gout, RA, SLE Other Musculoskeletal History: Right wrist styloid fracture on 01/01/2016. Chronic low back pain with left-sided radiculopathy and previous epidural steroid injections and pain clinic management. Neurological History: Reports: Other (See Below). Denies: Alzheimers Disease, Cerebral Aneurysms, Concussion, Headaches, Chronic, Head Trauma, Migraines, MS, Neuropathy, Diabetic, Neuropathy, Peripheral, Parkinson's, Seizure, TIA Other Neuro History: Recurrent falls with the patient needing a walker and cane. Psychiatric History: Reports: None. Denies: Abuse, Victim of, ADD, ADHD, Anxiety, Dementia, Depression, Psych Hospitalization(s), PTSD, Suicide Attempt, Suicidal Ideation Endocrine/Metabolic History: Reports: Diabetes, Type II, Hypomagnesemia, Obesity/BMI 30+, Osteopenia, Osteoporosis, Vitamin D Deficiency, Other (See Below). Denies: Diabetes, Gestational, Diabetes, Type I, Diabetes Mellitus, Type 3c, Hypothyroidism, IDDM Other Endocrine/Metabolic History: Hyponatremia. Hypoalbuminemia. Hematologic History: Reports: Anemia, B12 Deficiency, Iron Deficiency. Denies: Blood Transfusion(s) Immunologic History: Reports: None. Denies: AIDS, HIV, SLE Oncologic (Cancer) History: Reports: None. Denies: Basal Cell Carcinoma, Breast, Cervix, Colon, Hodgkin's Lymphoma, Leukemia, Lymphoma, Malignant Melanoma, Non-Hodgkin's Lymphoma, Ovarian, Squamous Cell Carcinoma, Uterine Dermatologic History: Reports: None. Denies: Eczema, Psoriasis - Infectious Disease History Infectious Disease History: Reports: MRSA (Right forearm). Denies: C-Difficile, Chicken Pox, Measles, Meningitis, Mononucleosis, Mumps, Novel Coronavirus, Pertussis (Whooping Cough), Rheumatic Fever, Rubella, Scarlet Fever, TB, VRE - Past Surgical History Head Surgeries/Procedures: Reports: None HEENT Surgical History: Reports: Adenoidectomy, Oral Surgery, Tonsillectomy, Other (See Below). Denies: Cataract Surgery, Eye Surgery, Laser Surgery, LASIK, Myringotomy w Tube(s), Naso-Sinus Surgery Other HEENT Surgeries/Procedures: Multiple teeth extractions. Tonsillectomy and adenoidectomy as a child. Cardiovascular Surgical History: Reports: None. Denies: Coronary Artery Stent, Percutaneous Transluminal Angioplasty, Varicose Respiratory Surgical History: Reports: None. Denies: Thoracentesis GI Surgical History: Reports: Cholecystectomy, Colonoscopy, Other (See Below). Denies: Appendectomy, EGD, Hernia, Abdominal, Hernia, Inguinal, Hernia Repair/Other, Polypectomy Other GI Surgeries/Procedures: Laparoscopic cholecystectomy on 10/15/2011 versus 10/01/2011 per [facility] records? Colonoscopy on 09/09/2008. Female Surgical History: Reports: Hysterectomy, Salpingo-Oophorectomy, Other (See Below) Other Female Surgeries/Procedures: Complete hysterectomy with bilateral salpingo-oophorectomy at unknown age secondary to dysfunctional uterine bleeding. Endocrine Surgical History: Reports: None. Denies: Thyroid Biopsy Neurological Surgical History: Reports: Lumbar Spine, Other (See Below) Other Neurological Surgeries/Procedures: Patient with unknown type of back surgery possibly in the . Musculoskeletal Surgical History: Reports: None. Denies: Arthroscopic Procedure, Carpal Tunnel, Ganglion Cyst, Joint Replacement, ORIF, Shoulder Surgery Oncologic Surgical History: Reports: None Dermatological Surgical History: Reports: None - Past Imaging History Past Imaging History: Reports: Cardiac Echo (02/26/2020 with ejection fraction of 55-60% with findings as above.), Carotid US (06/15/2001), Mammogram (Last mammogram on 04/09/2020.), MRI (MRI of the lumbar spine on 01/16/2019.), Stress Testing (Negative Cardiolite Lexiscan on 02/27/2020 with ejection fraction of 76%.), Ultrasound (Abdominal and pelvic ultrasound on 09/18/2011.) Social & Family History - Family History HEENT: Reports: None. Denies: Glaucoma, Macular Degeneration, Retinal Detachment Cardiac: Reports: CAD, [place]. Denies: Afib, Aneurysm, Arrhythmia, Blood Clots/VTE/DVT, Heart Failure, High Cholesterol, Hypertension, Syncope Other Cardiac Family History: Father from [place] in his 70s. Respiratory: Reports: None. Denies: Asthma, COPD, PE, Pneumothorax, Sleep Apnea GI: Reports: None. Denies: Celiac Disease, Cholelithiasis, Colon Polyps, GERD, GI bleed, Inflammatory Bowel Disease, Irritable Bowel Syndrome, PUD : Reports: None. Denies: Renal Calculus, Renal Disease/Insufficiency OBGYN: Reports: None. Denies: Dysfunctional uterine bleeding, Endometriosis, Recurrent Spontaneous Musculoskeletal: Reports: Arthritis, Muscular Dystrophy, Osteoarthritis, RA. Denies: Gout, SLE Other Musculoskeletal Family History: Son from muscular dystrophy. Mother with rheumatoid arthritis. Neurological: Reports: None. Denies: Alzheimers Disease, CVA, Dementia, Migraines, MS, Parkinson's, Seizure, TIA Psychiatric: Reports: None. Denies: Abuse, Victim of, ADD, Anxiety, Depression, Psych Hospitalization(s), PTSD, Suicide Attempt Endocrine/Metabolic: Reports: Diabetes, type II, IDDM, Obesity/MBI 30+. Denies: Diabetes, Gestational, Diabetes, Type I, Diabetes Mellitus, Type 3c, Hypothyroidism Other Endocrine/Metabolic Family History: Sister with IDDM. Father and son with AODM. Hematologic: Reports: None. Denies: Anemia, SLE Immunologic: Denies: AIDS, HIV, SLE Dermatologic: Reports: None. Denies: Eczema, Psoriasis Oncologic: Reports: Breast, Other (See Below). Denies: Cervix, Colon, Hodgkin's Lymphoma, Leukemia, Lymphoma, Non-Hodgkin's Lymphoma, Ovarian, Skin, Uterine Other Oncologic Family History: Mother with fatal breast cancer in her 70s. - Tobacco Use Tobacco Use Status *Q: Former Tobacco User Tobacco Use Within Last Twelve Months: No Years of Tobacco use: 7 Packs/Tins Daily: 0.1 Packs/Tins Daily Comment: 2 cigarettes/day between ages 20 and 27. Used Tobacco, but Quit: Yes Smoking Cessation Information Provided To Patient: No Second Hand Smoke Exposure: No Second Hand Smoke Education Provided: No - Caffeine Use Caffeine Use: Reports: Coffee (1 cup/day), Tea (1 glass/week). Denies: Energy Drinks, Soda - Alcohol Use Alcohol Use History: No Days Per Week of Alcohol Use: 0 Number of Drinks Per Day: 0 Number of Drinks Per Day Comment: No previous DWIs, problems with alcohol abuse, etc. 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 ED EXAM, GI/ABD - Physical Exam Exam: See Below Exam Limited By: No Limitations General Appearance: Alert, WD/WN, No Apparent Distress, Anxious (Mild) Eyes: Bilateral: Normal Appearance (The patient is wearing glasses. No vertigo or nystagmus.), EOMI (PERRLA) Ears: Normal External Exam, Normal Canal, Hearing Grossly Normal, Normal TMs Nose: Normal Inspection, Normal Mucosa, No Blood Throat/Mouth: Normal Inspection, Normal Lips, Normal Teeth (Multiple missing teeth), Normal Gums, Normal Oropharynx, Normal Voice, No Airway Compromise, Other (3 cm corpus palatinum). No: Dysphagia, Perioral Cyanosis Head: Atraumatic, Normocephalic. No: Facial Swelling, Facial Tenderness, Sinus Tenderness Neck: Supple, Non-Tender, Full Range of Motion, Carotid Bruit (Mild bilateral carotid bruits). No: Lymphadenopathy (L), Lymphadenopathy (R), Thyromegaly Respiratory/Chest: No Respiratory Distress, Lungs Clear, Normal Breath Sounds, No Accessory Muscle Use, Chest Non-Tender. No: Pleural Rub, Retractions Cardiovascular: Normal Peripheral Pulses, Regular Rate, Rhythm, No Edema, No Gallop, No JVD, No Murmur, No Rub. No: Gallop/S3, Gallop/S4, Friction Rub GI/Abdominal Exam: Normal Bowel Sounds, Soft, Non-Tender, No Organomegaly, No Abnormal Bruit, Distended, Tender (Moderate diffuse palpation pain), Abnormal Bowel Sounds (Moderate diffuse increased bowel sounds somewhat high-pitched in nature). No: Guarding, Rigid, Rebound (Female) Exam: Deferred Rectal (Female) Exam: Deferred Back Exam: Normal Inspection, Full Range of Motion. No: CVA Tenderness (L), CVA Tenderness (R), Muscle Spasm Extremities: Normal Inspection, Normal Range of Motion, Non-Tender, No Pedal Edema, Normal Capillary Refill. No: Arthur's Sign Neurological: Alert, Oriented, CN II-XII Intact, Normal Cognition, Normal Gait, Normal Reflexes (Negative Babinski's), No Motor/Sensory Deficits Psychiatric: Anxious (Mild), Depressed Mood (Mild) Skin Exam: Warm, Dry, Intact, Normal Color, No Rash, Ecchymosis (In the forearms bilaterally). No: Petechiae Lymphatic: No Adenopathy Course - Vital Signs Last Recorded V/S: Last Vital Signs Temp 36.9 C 08/15/20 23:44 Pulse 72 08/15/20 23:44 Resp 18 08/15/20 23:44 BP 141/87 H 08/15/20 23:44 Pulse Ox 98 08/15/20 23:44 Vital Signs - 24 hr 08/15/20 08/15/20 08/15/20 18:14 21:42 23:44 Temperature [ 36.4 C 37.0 C 36.9 C Temporal] Pulse, 79 70 72 Peripheral [ Right Pulse Oximetry] Respiratory 18 18 18 Rate Blood Pressure 144/45 H 142/63 H 141/87 H [Right Upper Arm] O2 Sat by Pulse 100 98 98 Oximetry - Orders/Labs/Meds Orders: Active Orders 24 hr Category Date Time Status Peripheral IV Care [RC] . DIRECTED Care 08/15/20 18:25 Active Nothing Per Oral Diet [DIET] Diet 08/15/20 Breakfast Active Abdomen Pelvis w Cont [CT] Stat Exams 08/15/20 18:24 Taken CULTURE BLOOD [BC] Stat Lab 08/15/20 18:35 Received CULTURE BLOOD [BC] Stat Lab 08/15/20 18:40 Received Lactated Ringers [Ringers, Lactated] 1,000 ml Med 08/15/20 19:45 Active IV ASDIRECTED Sodium Chloride 0.9% [Saline Flush] Med 08/15/20 18:23 Active 10 ml FLUSH ASDIRECTED PRN Blood Culture x2 Reflex Set [OM.PC] Urgent Oth 08/15/20 18:24 Ordered Obtain Past Medical Record [OM.PC] Urgent Oth 08/15/20 18:24 Active Peripheral IV Insertion Adult [OM.PC] Stat Oth 08/15/20 18:24 Ordered Resuscitation Status Stat Resus Stat 08/15/20 18:23 Ordered Medication Orders Lactated Ringer's (Ringers, Lactated) 1,000 mls @ 100 mls/hr IV ASDIRECTED [facility] Last Admin: 08/15/20 22:57 Dose: 100 mls/hr Documented by: TRENTON Sodium Chloride (Saline Flush) 10 ml FLUSH ASDIRECTED PRN PRN Reason: Keep Vein Open Last Admin: 08/15/20 19:47 Dose: 10 ml Documented by: Admin: 08/15/20 19:43 Dose: 10 ml Documented by: Admin: 08/15/20 19:38 Dose: 10 ml Documented by: MERI Labs: Laboratory Tests 08/15/20 08/15/20 08/15/20 Range/Units 18:40 18:40 18:40 WBC 8.8 (4.0-10.2) K/uL RBC 3.68 L (3.77-5.09) M/uL Hgb 9.9 L (11.7-15.5) g/dL Hct 31.1 L (34.0-46.0) % MCV 84.5 D (84.0-98.0) fL MCH 26.9 L (28.2-33.3) pg MCHC 31.8 (31.7-36.0) g/dL RDW 15.4 H (11.2-14.1) % Plt Count 486 H D (150-350) K/uL Neut % (Auto) 81.4 H (45.0-80.0) % Lymph % (Auto) 10.0 (10.0-50.0) % [place] % (Auto) 7.9 (2.0-14.0) % Eos % (Auto) 0.2 (0.0-5.0) % Baso % (Auto) 0.5 (0.0-2.0) % Neut # (Auto) 7.18 H (1.40-7.00) K/uL Lymph # (Auto) 0.88 (0.50-3.50) K/uL [place] # (Auto) 0.70 (0.00-1.00) K/uL Eos # (Auto) 0.02 (0.00-0.50) K/uL Baso # (Auto) 0.04 (0.00-0.20) K/uL PT 10.7 (9.5-12.0) SEC INR 1.1 APTT 25.3 (24.5-32.8) SEC Sodium 130 L (136-145) mmol/L Potassium 4.5 (3.5-5.1) mmol/L Chloride 94 L (98-107) mmol/L Carbon Dioxide 26.7 (21.0-32.0) mmol/L BUN 35 H (7-18) mg/dL Creatinine 1.27 H (0.51-1.17) mg/dL Est Cr Clr Drug Dosing 28.87 mL/min Estimated GFR (MDRD) 41 mL/min Glucose 177 H (70-99) mg/dL Lactic Acid (0.4-2.0) mmol/L Uric Acid 5.5 (2.6-7.2) mg/dL Calcium 9.2 (8.5-10.1) mg/dL Magnesium 2.1 (1.8-2.4) mg/dL Total Bilirubin 0.4 (0.2-1.0) mg/dL AST 19 (15-37) U/L ALT 16 (12-78) U/L Alkaline Phosphatase 74 (46-116) IU/L Total Protein 7.2 (6.4-8.2) g/dL Albumin 3.0 L (3.4-5.0) g/dL Amylase 43 (25-115) U/L Lipase 123 (73-393) U/L SARS-CoV-2 Ag (Rapid) (NEGATIVE) 08/15/20 08/15/20 Range/Units 18:40 18:46 WBC (4.0-10.2) K/uL RBC (3.77-5.09) M/uL Hgb (11.7-15.5) g/dL Hct (34.0-46.0) % MCV (84.0-98.0) fL MCH (28.2-33.3) pg MCHC (31.7-36.0) g/dL RDW (11.2-14.1) % Plt Count (150-350) K/uL Neut % (Auto) (45.0-80.0) % Lymph % (Auto) (10.0-50.0) % [place] % (Auto) (2.0-14.0) % Eos % (Auto) (0.0-5.0) % Baso % (Auto) (0.0-2.0) % Neut # (Auto) (1.40-7.00) K/uL Lymph # (Auto) (0.50-3.50) K/uL [place] # (Auto) (0.00-1.00) K/uL Eos # (Auto) (0.00-0.50) K/uL Baso # (Auto) (0.00-0.20) K/uL PT (9.5-12.0) SEC INR APTT (24.5-32.8) SEC Sodium (136-145) mmol/L Potassium (3.5-5.1) mmol/L Chloride (98-107) mmol/L Carbon Dioxide (21.0-32.0) mmol/L BUN (7-18) mg/dL Creatinine (0.51-1.17) mg/dL Est Cr Clr Drug Dosing mL/min Estimated GFR (MDRD) mL/min Glucose (70-99) mg/dL Lactic Acid 1.2 (0.4-2.0) mmol/L Uric Acid (2.6-7.2) mg/dL Calcium (8.5-10.1) mg/dL Magnesium (1.8-2.4) mg/dL Total Bilirubin (0.2-1.0) mg/dL AST (15-37) U/L ALT (12-78) U/L Alkaline Phosphatase (46-116) IU/L Total Protein (6.4-8.2) g/dL Albumin (3.4-5.0) g/dL Amylase (25-115) U/L Lipase (73-393) U/L SARS-CoV-2 Ag (Rapid) Negative (NEGATIVE) Meds: Medications Generic Name Dose Route Start Last Admin Trade Name Freq PRN Reason Stop Dose Admin Lactated Ringer's 1,000 mls @ 100 mls/hr 08/15/20 19:45 08/15/20 22:57 Ringers, Lactated IV 100 mls/hr ASDIRECTED DAVE Administration Sodium Chloride 10 ml 08/15/20 18:23 08/15/20 19:47 Saline Flush FLUSH 10 ml ASDIRECTED PRN Administration Keep Vein Open Discontinued Medications Generic Name Dose Route Start Last Admin Trade Name Freq PRN Reason Stop Dose Admin Famotidine 40 mg 08/15/20 18:23 08/15/20 19:43 Pepcid IVPUSH 08/15/20 18:24 40 mg ONETIME ONE Administration Lactated Ringer's 1,000 mls @ 999 mls/hr 08/15/20 18:23 08/15/20 19:52 Ringers, Lactated IV 08/15/20 19:23 999 mls/hr .BOLUS ONE Administration Metronidazole 500 mg/ Premix 100 mls @ 100 mls/hr 08/15/20 18:23 08/15/20 19:52 IV 08/15/20 19:22 100 mls/hr ONETIME ONE Administration Ciprofloxacin/Dextrose 200 mg/ 100 mls @ 100 mls/hr 08/15/20 18:26 08/15/20 19:46 Premix IV 08/15/20 19:25 100 mls/hr ONETIME ONE Administration Iopamidol 100 ml 08/15/20 18:39 08/15/20 19:14 Isovue-300 (61%) IVPUSH 08/15/20 18:40 100 ml ONETIME STA Administration Iopamidol Confirm 08/15/20 18:41 Isovue-300 (61%) Administered 08/15/20 18:42 Dose 100 ml .ROUTE .STK-MED ONE Ondansetron HCl 4 mg 08/15/20 18:23 08/15/20 19:37 Zofran IVPUSH 08/15/20 18:24 4 mg ONETIME ONE Administration Pantoprazole Sodium 40 mg 08/15/20 18:23 08/15/20 19:40 Protonix Iv IVPUSH 08/15/20 18:24 40 mg ONETIME ONE Administration - Radiology Interpretation Free Text/Narrative:: Abdominal x-rays, flat and upright, taken earlier today shows evidence of severe diffuse increased bowel gaseous pattern including multiple fluid levels consi stent with possible ileus versus obstruction. No free air noted. CT of the abdomen and pelvis with both p.o. and IV contrast shows no direct evidence of obstruction or ileus however diverticulitis noted with additional mucosal thickening of the sigmoid colon just distal to the area of diverticulitis. Preliminary verbal report from [place] radiology department was not received despite our previous request. Departure - Departure Time of Disposition: 00:50 Disposition: DC/Tfer to Acute Hospital 02 Condition: Fair Clinical Impression: Diverticulitis, Renal insufficiency Coronary artery disease Qualifiers: Coronary Disease-Associated Artery/Lesion type: [place] artery [place] vs. transplanted heart: [place] heart Associated angina: without angina Qualified Code(s): I25.10 - Atherosclerotic heart disease of [place] coronary artery without angina pectoris Hypertension Qualifiers: Hypertension type: essential hypertension Qualified Code(s): I10 - Essential (primary) hypertension Osteoarthritis Qualifiers: Osteoarthritis location: multiple joints Osteoarthritis type: primary Qualified Code(s): M89.49 - Other hypertrophic osteoarthropathy, multiple sites Diabetes mellitus Qualifiers: Diabetes mellitus type: type 2 Diabetes mellitus usp insulin use: without emt intermediate use Diabetes mellitus complication status: with kidney complications Diabetes mellitus complication detail: with chronic kidney disease Chronic kidney disease stage: stage 2 (mild) Qualified Code(s): E11.22 - Type 2 diabetes mellitus with diabetic chronic kidney disease Constipation Qualifiers: Constipation type: slow transit constipation Qualified Code(s): K59.01 - Slow transit constipation - Discharge Information *PRESCRIPTION DRUG MONITORING PROGRAM REVIEWED*: Not Applicable *COPY OF PRESCRIPTION DRUG MONITORING REPORT IN PATIENT MAURO: Not Applicable Referrals: Mona Sarmiento PA [Primary Care Provider] - Forms: ED Department Discharge, Interfacility Transfer [facility] Sepsis Event Note (ED) - Evaluation Sepsis Screening Result: No Definite Risk - Focused Exam Vital Signs: Vital Signs Temp Pulse Resp BP Pulse Ox 08/15/20 23:44 36.9 C 72 18 141/87 H 98 08/15/20 21:42 37.0 C 70 18 142/63 H 98 08/15/20 18:14 36.4 C 79 18 144/45 H 100 - Problem List & Annotations (1) Diverticulitis SNOMED Code(s): 175334203 Code(s): K57.92 - DVTRCLI OF INTEST, PART UNSP, W/O PERF OR ABSCESS W/O BLEED Status: Acute Priority: High Current Visit: Yes Onset Date: 08/15/20 Annotation/Comment:: Telephone consultation at 8:[address] Brady, hospitalist at the [facility], who does accept the patient for direct admission, with no further treatment recommendations given. Secondary to suspicions of possible beginning ileus and obstruction IV Cipro and IV Flagyl therapy was initiated in the emergency room shortly after arrival to our facility with subsequent initiation of IV lactated Ringer's. High-dose IV Pepcid and IV Protonix were also given as below. Vital signs and clinical exam were stable at time of transfer. Ambulance transfer via ambulance with network account manager accompaniment. Note that the patient did not wish to be hospitalized in this facility. Secondary to lack of ambulance availability and another cardiac patient require an earlier transfer in our emergency room there was some moderate delay in patient's transfer to [facility] as above. No sequelae from delay transfer. Note that the patient did not wish to stay in this facility for further treatment with the patient transfer to [facility] in [place] as above per her request. (2) Constipation SNOMED Code(s): 27749687 Code(s): K59.00 - CONSTIPATION, UNSPECIFIED Status: Chronic Priority: High Current Visit: Yes Annotation/Comment:: Secondary diverticulitis as above. Qualifiers: Constipation type: slow transit constipation Qualified Code(s): K59.01 - Slow transit constipation (3) Hyponatremia SNOMED Code(s): 89782384 Code(s): E87.1 - HYPO-OSMOLALITY AND HYPONATREMIA Status: Acute Priority: Medium Current Visit: Yes Onset Date: 08/15/20 Annotation/Comment:: Lactated Ringer's initiated in the emergency room. Observe for now. No previous history of CHF with no recent anginal complaints. (4) Hypertension SNOMED Code(s): 08849516 Code(s): I10 - ESSENTIAL (PRIMARY) HYPERTENSION Status: Chronic Priority: Medium Current Visit: Yes Annotation/Comment:: Somewhat elevated in the emergency room likely secondary to abdominal pain. Continue to observe closely by accepting providers. Qualifiers: Hypertension type: essential hypertension Qualified Code(s): I10 - Essential (primary) hypertension (5) Osteoarthritis SNOMED Code(s): 484790309 Code(s): M19.90 - UNSPECIFIED OSTEOARTHRITIS, UNSPECIFIED SITE Status: Chronic Priority: Medium Current Visit: Yes Annotation/Comment:: Otherwise stable by history with no recent injuries or falls. Qualifiers: Osteoarthritis location: multiple joints Osteoarthritis type: primary Qualified Code(s): M89.49 - Other hypertrophic osteoarthropathy, multiple sites (6) Peptic reflux disease SNOMED Code(s): 059181973 Code(s): K21.9 - GASTRO-ESOPHAGEAL REFLUX DISEASE WITHOUT ESOPHAGITIS Status: Chronic Priority: Medium Current Visit: Yes Annotation/Comment:: No evidence of acute GI bleed despite anemia as below.. High-dose IV Pepcid given as GI prophylaxis in the emergency room. Continue to observe closely by accepting providers. (7) Anemia SNOMED Code(s): 783253386 Code(s): D64.9 - ANEMIA, UNSPECIFIED Status: Chronic Current Visit: No Annotation/Comment:: History of iron deficiency and vitamin B12 deficiency. Patient has refused colonoscopy in the recent past, however. Qualifiers: Anemia type: iron deficiency Iron deficiency anemia type: unspecified iron deficiency Qualified Code(s): D50.9 - Iron deficiency anemia, unspecified (8) Renal insufficiency SNOMED Code(s): 189333972, 180616376 Code(s): N28.9 - DISORDER OF KIDNEY AND URETER, UNSPECIFIED Status: Chronic Priority: High Current Visit: Yes Onset Date: 02/24/20 Annotation/Comment:: Diabetic nephropathy with stable creatinine at time of transfer. Consider urine for microalbumin, etc. depending on her clinical course. Observe for now. (9) Hypoalbuminemia SNOMED Code(s): 871361655 Code(s): E88.09 - OTH DISORDERS OF PLASMA-PROTEIN METABOLISM, NEC Status: Chronic Priority: Medium Current Visit: Yes Onset Date: 02/25/20 Annotation/Comment:: Normal albumin level on admission. Observe for now. Consider high-protein Glucerna supplements as snacks depending on her clinical course. (10) Coronary artery disease SNOMED Code(s): 11576520 Code(s): I25.10 - ATHSCL HEART DISEASE OF [place] CORONARY ARTERY W/O ANG PCTRS Status: Acute Priority: Medium Current Visit: Yes Onset Date: 02/25/20 Annotation/Comment:: No chest pain or anginal type symptoms. Qualifiers: Coronary Disease-Associated Artery/Lesion type: [place] artery [place] vs. transplanted heart: [place] heart Associated angina: without angina Qualified Code(s): I25.10 - Atherosclerotic heart disease of [place] coronary artery without angina pectoris (11) Diabetes mellitus SNOMED Code(s): 59868327 Code(s): E11.9 - TYPE 2 DIABETES MELLITUS WITHOUT COMPLICATIONS Status: Chronic Priority: Medium Current Visit: Yes Annotation/Comment:: Currently under therapy. Continue to observe closely by accepting providers. 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 DIRECTED 08/15/20 18:35 CULTURE BLOOD [BC] Stat 08/15/20 18:40 CULTURE BLOOD [BC] Stat 08/15/20 19:45 Lactated Ringers [Ringers, Lactated] 1,000 ml IV ASDIRECTED - Assessment/Plan Last 24 Hours: My Active Orders 08/15/20 Breakfast Nothing Per Oral Diet [DIET] 08/15/20 18:23 Sodium Chloride 0.9% [Saline Flush] 10 ml FLUSH ASDIRECTED PRN Resuscitation Status Stat 08/15/20 18:24 Abdomen Pelvis w Cont [CT] Stat Blood Culture x2 Reflex Set [OM.PC] Urgent Obtain Past Medical Record [OM.PC] Urgent Peripheral IV Insertion Adult [OM.PC] Stat 08/15/20 18:25 Peripheral IV Care [RC] . DIRECTED 08/15/20 18:35 CULTURE BLOOD [BC] Stat 08/15/20 18:40 CULTURE BLOOD [BC] Stat 08/15/20 19:45 Lactated Ringers [Ringers, Lactated] 1,000 ml IV ASDIRECTED Assessment:: As above Plan: As above. Extensive precautions were given to the patient, who is in agreement with the treatment plan. Ambulance transfer to [facility] as above.
[2020-08-15] MEDS ORDERED: Ciprofloxacin in D5W 200 MG in Premix Bag 1 BAG IV ONE ×2 (18:26)
[2020-08-15] MEDS ORDERED: Iopamidol 612 MG/ML 100 ML Bottle IVPUSH STA (18:39)
[2020-08-15] MEDS ORDERED: Iopamidol 612 MG/ML 100 ML Bottle ONE (18:41)
[2020-08-15 19:03] LABS: PTT,PARTIAL THROMBOPLSTIN TIME 25.3 SEC (24.5-32.8)
[2020-08-15] MEDS: Sodium Chloride 0.9% 10 ML Syringe FLUSH PRN ×3 (19:38→19:47)
[2020-08-15] MEDS ORDERED: Lactated Ringers 1,000 ML IV SCH (19:45)
== END 2020-08-16 00:50 ==
LOC: LL.ED 18:09
DX: K57.32 Diverticulitis of large intestine without perforation or abscess without bleeding (principal); I25.10 Atherosclerotic heart disease of native coronary artery without angina pectoris; I12.9 Hypertensive chronic kidney disease with stage 1 through stage 4 chronic kidney disease, or unspecified chronic kidney disease; N18.9 Chronic kidney disease, unspecified; E11.21 Type 2 diabetes mellitus with diabetic nephropathy; E11.22 Type 2 diabetes mellitus with diabetic chronic kidney disease; E78.00 Pure hypercholesterolemia, unspecified; I25.2 Old myocardial infarction; Z88.0 Allergy status to penicillin; Z88.5 Allergy status to narcotic agent; Z91.048 Other nonmedicinal substance allergy status; Z79.82 Long term (current) use of aspirin; Z79.84 Long term (current) use of oral hypoglycemic drugs; Z79.899 Other long term (current) drug therapy; Z95.5 Presence of coronary angioplasty implant and graft; K59.00 Constipation, unspecified; I70.90 Unspecified atherosclerosis; M51.36 Other intervertebral disc degeneration, lumbar region; Z90.49 Acquired absence of other specified parts of digestive tract; Z20.828 Contact with and (suspected) exposure to other viral communicable diseases
CPT/HCPCS: 36415; 74019; 74177; 80053; 82150; 83605; 83690; 83735; 84550; 85025; 85610; 85730; 87040; 87426; 96361; 96365; 96367; 96375; 99284; 99285; C9113; J0744; J2405; J3490; J7120; Q9967

== ENCOUNTER 2020-10-26 12:28 | Emergency (ER) | payer MEDICARE, MEDICAID ==
[2020-10-26] MEDS ORDERED: Sodium Chloride 0.9% 1,000 ML IOSS SCH (12:37)
[2020-10-26] MEDS ORDERED: Sodium Chloride 0.9% 10 ML Syringe FLUSH PRN (12:38)
[2020-10-26] MEDS ORDERED: Atropine 0.1 MG/ML 10 ML Syringe IOSS ONE (12:38)
[2020-10-26] MEDS ORDERED: Norepinephrine 4 MG/4 ML SDV ONE (12:39)
[2020-10-26] MEDS ORDERED: Norepinephrine 4 MG in Dextrose 5% in Water 246 ML IV SCH ×2 (12:47)
[2020-10-26] MEDS ORDERED: Naloxone 0.4 MG/ML SDV IOSS ONE (12:54)
[2020-10-26] MEDS ORDERED: Sodium Chloride 0.9% 1,000 ML IOSS ONE (12:58)
[2020-10-26] MEDS ORDERED: fentaNYL 100 MCG/2 ML SDV ONE ×2 (13:04→13:29)
[2020-10-26] MEDS ORDERED: fentaNYL 100 MCG/2 ML SDV IV ONE ×2 (13:07→13:31)
[2020-10-26 13:34] LABS: CHLORIDE,CL 99 mmol/L (98-107); SODIUM,NA 130 mmol/L (136-145)
[2020-10-26] MEDS ORDERED: Insulin Regular, Human 100 Units/ML 3 ML Vial ONE (13:39)
[2020-10-26] MEDS ORDERED: Insulin Regular, Human 100 Units/ML 3 ML Vial IV ONE (13:41)
[2020-10-26] MEDS ORDERED: 50% Dextrose in Water 50 ML Syringe IV ONE (13:42)
--- NOTE | 2020-10-26 15:03 | EDM.PDOC ---
ED HPI GENERAL MEDICAL PROBLEM - General Chief Complaint: Neuro Symptoms/Deficits Stated Complaint: Unresponsive Time Seen by Provider: 10/26/20 12:28 Source of Information: Reports: EMS, Other History Limitations: Reports: Other (unresponsive) - History of Present Illness INITIAL COMMENTS - FREE TEXT/NARRATIVE: Patient sent from [facility] via EMS after being found unresponsive around 11:30. EMS noted that patient did have some response to them initially but was completely unresponsive prior to them leaving the facility at 12:15. No communication received at all from [place] prior to patient arrival. Ultimately had to place a phone call to their facility in order to obtain any information. They noted that patient was down for breakfast and seemed "slower than usual". After breakfast she wanted to go back to bed. She was found to be nonresponsive when they went back to her room to get her up for lunch. They do not recall any recent changes otherwise in regards to the patient/her health. No signs of illness/fevers etc. Full Code. See code sheet for specifics in regards to patient's time in ER. She did come in hypotensive, unresponsive, bradycardic. Blood sugar in ambulance was approx 180. BPs around 60s/40s en route. - Related Data Allergies Allergy/AdvReac Type Severity Reaction Status Date / Time Penicillins Allergy Hives Verified 10/17/20 15:36 tramadol AdvReac Nausea Verified 10/17/20 15:36 yellow dye AdvReac Itching Verified 10/17/20 15:36 Home Meds: Home Meds Fenofibrate,Micronized [Fenofibrate] 134 mg PO BEDTIME 04/24/14 [History] metFORMIN [Glucophage] 500 mg PO BIDM 04/24/14 [History] Cyanocobalamin (Vitamin B-12) [Cyanocobalamin Injection] 1,000 mcg IM Q30D 09/07/19 [History] Acetaminophen [Tylenol Arthritis] 1 tab PO TID 10/18/19 [History] Aspirin [Aspirin EC] 81 mg PO DAILY 08/15/20 [History] Cholecalciferol (Vitamin D3) [Vitamin D3] 1,000 unit PO DAILY 08/15/20 [History] Docusate Sodium/Sennosides [Senna Plus] 1 each PO BID 08/15/20 [History] Ferrous Sulfate 325 mg PO DAILY 08/15/20 [History] Magnesium Hydroxide [Milk of Magnesia] 30 ml PO DAILY PRN 08/15/20 [History] Metoprolol Succinate [Toprol XL] 25 mg PO DAILY 08/15/20 [History] polyethylene glycoL 3350 [MiraLAX] 17 gm PO DAILY 08/15/20 [History] Ascorbic Acid [Vitamin C] 250 mg PO DAILY 09/05/20 [History] Magnesium Chloride 2 tab PO DAILY 09/05/20 [History] Multivitamins [Tab-A-Dharmesh] 1 tab PO DAILY 09/05/20 [History] DULoxetine [Cymbalta] 30 mg PO BEDTIME 10/03/20 [History] Docusate Sodium/Sennosides [Senna Plus] 1 tab PO BID PRN 10/03/20 [History] Oxybutynin [Oxybutynin ER] 5 mg PO BEDTIME 10/03/20 [History] bisacodyL [Bisacodyl] 5 mg PO Q12HR PRN 10/03/20 [History] bisacodyL [Bisacodyl] 10 mg RC DAILY PRN 10/03/20 [History] lisinopriL [Lisinopril] 2.5 mbq PO DAILY 10/03/20 [History] Acetaminophen [Tylenol] 650 mg PO Q6H PRN MDD 3,000 mg in 24 hours 10/17/20 [History] Mag Hydrox/Aluminum Hyd/Simeth [Antacid Liquid] 30 ml PO Q12H PRN 10/17/20 [History] Non-Formulary Medication [NF Drug] 1 patch TOP Q12HR 10/17/20 [History] Past Medical History HEENT History: Reports: Impaired Vision, Other (See Below) Other HEENT History: The patient does wear glasses. Corpus palatinum. Cardiovascular History: Reports: Arrhythmia, CAD, Cardiomyopathy, Heart Murmur, High Cholesterol, Hypertension, [place], Other (See Below) Other Cardiovascular History: PSVT. History of D-dimer elevation. Dyslipidemia. Grade 2 diastolic dysfunction. Mild left atrial enlargement by echocardiogram. Respiratory History: Reports: Intubation, Previous Gastrointestinal History: Reports: Cholelithiasis, Chronic Constipation, Chronic Diarrhea, GERD Genitourinary History: Reports: Chronic Renal Insuffiency, Diabetic Nephropathy, Retention, Urinary, Urinary Incontinence, UTI, Recurrent, Other (See Below) Other Genitourinary History: Benign left renal cyst. APPLIANCE TECHNICIAN History: Reports: Dysfunctional Uterine Bleeding, , Prolapsed Uterus Other APPLIANCE TECHNICIAN History: Surgical menopause secondary to dysfunctional uterine bleeding as above. Full term without complications during pregnancies or deliveries. Musculoskeletal History: Reports: Arthritis, Back Pain, Chronic, Fracture, Neck Pain, Chronic, Osteoarthritis, Osteoporosis, Other (See Below) Other Musculoskeletal History: Right wrist styloid fracture on 01/01/2016. Chronic low back pain with left-sided radiculopathy and previous epidural steroid injections and pain clinic management. Neurological History: Reports: Other (See Below) Other Neuro History: Recurrent falls with the patient needing a walker and cane. Psychiatric History: Reports: None Other Psychiatric History: Spouse 2 years ago Endocrine/Metabolic History: Reports: Diabetes, Type II, Hypomagnesemia, Obesity/BMI 30+, Osteopenia, Osteoporosis, Vitamin D Deficiency, Other (See Below) Other Endocrine/Metabolic History: Hyponatremia. Hypoalbuminemia. Hematologic History: Reports: Anemia, B12 Deficiency, Iron Deficiency Immunologic History: Reports: None Oncologic (Cancer) History: Reports: None Dermatologic History: Reports: None - Infectious Disease History Infectious Disease History: Reports: MRSA - Past Surgical History Head Surgeries/Procedures: Reports: None HEENT Surgical History: Reports: Adenoidectomy, Oral Surgery, Tonsillectomy, Other (See Below) Other HEENT Surgeries/Procedures: Multiple teeth extractions. Tonsillectomy and adenoidectomy as a child. Cardiovascular Surgical History: Reports: None Respiratory Surgical History: Reports: None Other Respiratory Surgeries/Procedures: Laparoscopic cholecystectomy on 10/15/2011. Colonoscopy on 09/09/2008. GI Surgical History: Reports: Cholecystectomy, Colonoscopy, Other (See Below) Other GI Surgeries/Procedures: Laparoscopic cholecystectomy on 10/15/2011 versus 10/01/2011 per [facility] records? Colonoscopy on 09/09/2008. Female Surgical History: Reports: Hysterectomy, Salpingo-Oophorectomy, Other (See Below) Other Female Surgeries/Procedures: Complete hysterectomy with bilateral salpingo-oophorectomy at unknown age secondary to dysfunctional uterine bleeding. Endocrine Surgical History: Reports: None Neurological Surgical History: Reports: Lumbar Spine, Other (See Below) Other Neurological Surgeries/Procedures: Patient with unknown type of back surgery possibly in the . Musculoskeletal Surgical History: Reports: None Oncologic Surgical History: Reports: None Dermatological Surgical History: Reports: None - Past Imaging History Past Imaging History: Reports: Cardiac Echo (02/26/2020 with ejection fraction of 55-60% with findings as above.), Carotid US (06/15/2001), Mammogram (Last mammogram on 04/09/2020.), MRI (MRI of the lumbar spine on 01/16/2019.), Stress Testing (Negative Cardiolite Lexiscan on 02/27/2020 with ejection fraction of 76%.), Ultrasound (Abdominal and pelvic ultrasound on 09/18/2011.) Social & Family History - Family History HEENT: Reports: None Cardiac: Reports: CAD, [place] Other Cardiac Family History: Father from [place] in his 70s. Respiratory: Reports: None GI: Reports: None : Reports: None OBGYN: Reports: None Musculoskeletal: Reports: Arthritis, Muscular Dystrophy, Osteoarthritis, RA Other Musculoskeletal Family History: Son from muscular dystrophy. Mother with rheumatoid arthritis. Neurological: Reports: None Psychiatric: Reports: None Endocrine/Metabolic: Reports: Diabetes, type II, IDDM, Obesity/MBI 30+ Other Endocrine/Metabolic Family History: Sister with IDDM. Father and son with AODM. Hematologic: Reports: None Immunologic: Denies: AIDS, HIV, SLE Dermatologic: Reports: None Oncologic: Reports: Breast, Other (See Below) Other Oncologic Family History: Mother with fatal breast cancer in her 70s. 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 .) ED ROS GENERAL - Review of Systems Review Of Systems: Unable To Obtain Reason Not Obtained: unresponsive ED EXAM, GENERAL - Physical Exam Exam: See Below Exam Limited By: Other (unresponsive) Eye Exam: Bilateral Eye: Other (both eyes with slight right deviation, left pupil 5mm, right pupil 6-7mm, both minimally responsive to light) Ears: Normal External Exam Nose: No: Nasal Deformity, Nasal Swelling, Nasal Drainage Throat/Mouth: Other (some missing teeth, no acute changes oropharynx noted) Head: Atraumatic, Normocephalic Neck: No: Lymphadenopathy (L), Lymphadenopathy (R) Respiratory/Chest: Rhonchi (bilat), Accessory Muscle Use, Other (appeared to have agonal breathing pattern upon arrival). No: Wheezing Cardiovascular: No Edema, Other (able to noted carotid pulse. Unable to feel pulse in extremities. ) GI/Abdominal: Other (rounded abdomen, diminished bowel sounds, no sign of tenderness with palpation) Extremities: Mottled (hands, knees, feet). No: Pedal Edema Neurological: Unresponsive, Other (no posturing of limbs noted) Skin Exam: Cool (limbs), Mottled Course - Orders/Labs/Meds Orders: Active Orders 24 hr Category Date Time Status Chest 1V Frontal [CR] Routine Exams 10/26/20 13:00 Taken Head wo Cont [CT] Routine Exams 10/26/20 13:15 Taken Labs: Laboratory Tests 10/26/20 10/26/20 10/26/20 Range/Units 13:10 13:10 13:10 WBC 8.0 (4.0-10.2) K/uL RBC 4.34 (3.77-5.09) M/uL Hgb 11.9 D (11.7-15.5) g/dL Hct 38.9 (34.0-46.0) % MCV 89.6 D (84.0-98.0) fL MCH 27.4 L (28.2-33.3) pg MCHC 30.6 L (31.7-36.0) g/dL RDW 16.0 H (11.2-14.1) % Plt Count 416 H (150-350) K/uL Neut % (Auto) 69.7 (45.0-80.0) % Lymph % (Auto) 20.8 (10.0-50.0) % [place] % (Auto) 9.2 (2.0-14.0) % Eos % (Auto) 0.0 (0.0-5.0) % Baso % (Auto) 0.3 (0.0-2.0) % Neut # (Auto) 5.55 (1.40-7.00) K/uL Lymph # (Auto) 1.65 (0.50-3.50) K/uL [place] # (Auto) 0.73 (0.00-1.00) K/uL Eos # (Auto) 0.00 (0.00-0.50) K/uL Baso # (Auto) 0.02 (0.00-0.20) K/uL D-Dimer, Quantitative (0-400) ng/mL Sodium 130 L (136-145) mmol/L Potassium 6.2 H* D (3.5-5.1) mmol/L Chloride 99 (98-107) mmol/L Carbon Dioxide 7.4 L* D (21.0-32.0) mmol/L BUN 52 H (7-18) mg/dL Creatinine 1.14 (0.51-1.17) mg/dL Est Cr Clr Drug Dosing TNP Estimated GFR (MDRD) 46 mL/min Glucose 169 H (70-99) mg/dL Lactic Acid 9.5 H (0.4-2.0) mmol/L Calcium 9.7 (8.5-10.1) mg/dL Total Bilirubin 0.5 (0.2-1.0) mg/dL AST 81 H (15-37) U/L ALT 32 (12-78) U/L Alkaline Phosphatase 132 H (46-116) IU/L Troponin I 0.016 (0.000-0.056) ng/mL Total Protein 6.2 L (6.4-8.2) g/dL Albumin 2.0 L (3.4-5.0) g/dL 10/26/20 Range/Units 13:10 WBC (4.0-10.2) K/uL RBC (3.77-5.09) M/uL Hgb (11.7-15.5) g/dL Hct (34.0-46.0) % MCV (84.0-98.0) fL MCH (28.2-33.3) pg MCHC (31.7-36.0) g/dL RDW (11.2-14.1) % Plt Count (150-350) K/uL Neut % (Auto) (45.0-80.0) % Lymph % (Auto) (10.0-50.0) % [place] % (Auto) (2.0-14.0) % Eos % (Auto) (0.0-5.0) % Baso % (Auto) (0.0-2.0) % Neut # (Auto) (1.40-7.00) K/uL Lymph # (Auto) (0.50-3.50) K/uL [place] # (Auto) (0.00-1.00) K/uL Eos # (Auto) (0.00-0.50) K/uL Baso # (Auto) (0.00-0.20) K/uL D-Dimer, Quantitative 2020 H (0-400) ng/mL Sodium (136-145) mmol/L Potassium (3.5-5.1) mmol/L Chloride (98-107) mmol/L Carbon Dioxide (21.0-32.0) mmol/L BUN (7-18) mg/dL Creatinine (0.51-1.17) mg/dL Est Cr Clr Drug Dosing Estimated GFR (MDRD) mL/min Glucose (70-99) mg/dL Lactic Acid (0.4-2.0) mmol/L Calcium (8.5-10.1) mg/dL Total Bilirubin (0.2-1.0) mg/dL AST (15-37) U/L ALT (12-78) U/L Alkaline Phosphatase (46-116) IU/L Troponin I (0.000-0.056) ng/mL Total Protein (6.4-8.2) g/dL Albumin (3.4-5.0) g/dL Meds: Medications Discontinued Medications Generic Name Dose Route Start Last Admin Trade Name Freq PRN Reason Stop Dose Admin Fentanyl Confirm 10/26/20 13:04 Fentanyl 100 Mcg/2 Ml Sdv Administered 10/26/20 13:05 Dose 100 mcg .ROUTE .STK-MED ONE Fentanyl Confirm 10/26/20 13:29 Fentanyl 100 Mcg/2 Ml Sdv Administered 10/26/20 13:30 Dose 100 mcg .ROUTE .STK-MED ONE Insulin Human Regular Confirm 10/26/20 13:39 Insulin Regular, Human 100 Units/Ml 3 Ml Vial Administered 10/26/20 13:40 Dose 300 unit .ROUTE .STK-MED ONE Norepinephrine Bitartrate Confirm 10/26/20 12:39 Norepinephrine 4 Mg/4 Ml Sdv Administered 10/26/20 12:40 Dose 4 mg .ROUTE .STK-MED ONE - Re-Assessments/Exams Free Text/Narrative Re-Assessment/Exam: 10/26/20 15:08 Patient received O2 via BVM. E-Mergency/[place] activated. Intubated shortly after initial assessment. Coarse breath sounds bilaterally. Eyes with rightward deviation but no other focal neuro changes noted. Low BP/heart rate noted. Unable to get IV access. IO established left lower leg. IV fluid bolus initiated. Given lack of peripheral pulse/agonal breathing/low BP/bradycardia a single dose of Atropine given. Patient intubated. No resistance noted. Heart rate improved. Levophed drip established. Very difficult to draw blood labs and only a small sample was obtained. CT of head performed. Chest xray taken to check tube placement and assess chest. [place] contacted for transfer of patient. Patient afebrile. No acute abnormalities noted on either study by radiology. Lactic, K elevated. Normal WBC. Patient's BPs/heart rate/O2 sats gradually improved over time. Started to fight against ET tube/bagging and required Fentanyl. Insulin for hyperkalemia initiated. Unable to test Troponin. EKG showed some ST depression lateral leads. [facility] arrived to transfer patient to [place] ER where she was accepted by . IV NS and Levophed continued during transfer. Elizalde not placed prior to transfer/no UA obtained to be able to rule out UTI. Specific etiology for episode remains undetermined at time of transfer. Departure - Departure Time of Disposition: 14:00 Disposition: DC/Tfer to Acute Hospital 02 Condition: Poor, Critical Clinical Impression: Unresponsiveness, Hyperkalemia Hypotension Qualifiers: Hypotension type: unspecified hypotension type Qualified Code(s): I95.9 - Hypotension, unspecified - Discharge Information Referrals: Brooklynn Rubio NP [Primary Care Provider] - Critical Care Note - Critical Care Note Total Time (mins): 90 - My Orders Last 24 Hours: My Active Orders 10/26/20 13:00 Chest 1V Frontal [CR] Routine 10/26/20 13:15 Head wo Cont [CT] Routine - Assessment/Plan Last 24 Hours: My Active Orders 10/26/20 13:00 Chest 1V Frontal [CR] Routine 10/26/20 13:15 Head wo Cont [CT] Routine
== END 2020-10-26 14:10 ==
LOC: LL.ED 12:28
DX: I95.9 Hypotension, unspecified (principal); E87.5 Hyperkalemia; I25.10 Atherosclerotic heart disease of native coronary artery without angina pectoris; I25.2 Old myocardial infarction; E78.5 Hyperlipidemia, unspecified; I12.9 Hypertensive chronic kidney disease with stage 1 through stage 4 chronic kidney disease, or unspecified chronic kidney disease; N18.9 Chronic kidney disease, unspecified; E11.21 Type 2 diabetes mellitus with diabetic nephropathy; E11.22 Type 2 diabetes mellitus with diabetic chronic kidney disease; M19.90 Unspecified osteoarthritis, unspecified site; Z88.0 Allergy status to penicillin; Z88.5 Allergy status to narcotic agent; Z91.048 Other nonmedicinal substance allergy status; Z79.82 Long term (current) use of aspirin; Z79.84 Long term (current) use of oral hypoglycemic drugs; Z79.899 Other long term (current) drug therapy; E66.9 Obesity, unspecified
CPT/HCPCS: 31500; 36415; 36680; 70450; 71045; 80053; 83605; 84484; 85025; 85379; 93005; 96365; 96366; 96375; 99284; 99285-25; J0461; J1815-GY; J2310; J3010; J7030; J7060